=== PATIENT | female | born 1940 | race Caucasian/White ===

== ENCOUNTER 2018-08-13 12:10 | Inpatient (IN) | payer MEDICARE, OTHER ==
[~2018-08-13] VITALS: Ht 154.9 cm; Wt 53.8 kg
[~2018-08-13 12:10] MED LIST: ALEN70TA3 PO; ASPI-482 PO; CRESTOR10 MG PO; HYDR50TA6 PO; METO-269 PO; NIFE60TA12 PO; TELM80TA PO
--- NOTE | 2018-08-13 13:10 | PHYS DOC ---
Adult General Chief Complaint Chief Complaint: HYPERTENSION HPI HPI Patient is a 77 year old female who presents with complaining of high blood pressure. Patient stated for the last 1 week she had elevation of blood pressure associated with headache and dizziness and foggy thinking that gradually getting worse. Patient currently is on 4 blood pressure medication and was treated with prednisone for skin infection. 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 Patient denies focal neuro deficit, chest pain, shortness of breath, fever and chills, dehydration. Patient had blood pressure of 232/108 at arrival to ER. Review of Systems Review of Systems Constitutional: Denies fever or chills [] Eyes: Denies change in visual acuity, redness, or eye pain [] HENT: Denies nasal congestion or sore throat [] Respiratory: Denies cough or shortness of breath [] Cardiovascular: No additional information not addressed in HPI [] GI: Denies abdominal pain, nausea, vomiting, bloody stools or diarrhea [] : Denies dysuria or hematuria [] Musculoskeletal: Denies back pain or joint pain [] Integument: Denies rash or skin lesions [] Neurologic: Reports dizziness and headache, denies focal weakness or sensory changes [] Endocrine: Denies polyuria or polydipsia [] All other systems were reviewed and found to be within normal limits, except as documented in this note. Current Medications Current Medications Allergies Allergies Allergies Coded Allergies Type Severity Reaction Last Updated Verified Sulfa (Sulfonamide Antibiotics) Allergy Intermediate RASH 12/21/14 Yes clopidogrel Allergy Intermediate RASH 12/21/14 Yes Physical Exam Physical Exam Constitutional: Well developed, well nourished, mild distress, non-toxic appearance. [] HENT: Normocephalic, atraumatic. Eyes: PERRLA, EOMI, conjunctiva normal, no discharge. [] Neck: Normal range of motion, no tenderness, supple, no stridor. [] Cardiovascular:Heart rate regular rhythm, no murmur [] Lungs & Thorax: Bilateral breath sounds clear to auscultation [] Abdomen: Bowel sounds normal, soft, no tenderness, no masses, no pulsatile masses. [] Skin: Warm, dry, no erythema, no rash. [] Back: No tenderness, no CVA tenderness. [] Extremities: No tenderness, no cyanosis, no clubbing, ROM intact, no edema. [] Neurologic: Alert and oriented X 3, normal motor function, normal sensory function, no focal deficits noted. [] Psychologic: Affect normal, judgement normal, mood normal. [] Current Patient Data Vital Signs EKG EKG EKG interpreted by me. EKG at 1322 showed sinus bradycardia at rate of 45, abnormal left axis deviation, LVH, no acute ST and T-wave abnormalities. Radiology/Procedures Radiology/Procedures [][place] [address] IMAGING REPORT Signed PATIENT: CELINA ROSADO ACCOUNT: [id number] : 1940 LOCATION: ER AGE: 77 SEX: F EXAM STATUS: REG ER ORD. PHYSICIAN: YESY DELGADO MD REASON: high blood pressure and headache PROCEDURE: PORTABLE CHEST 1V EXAM: CHEST 1 VIEW History: Blood pressure, headache COMPARISON: None available. TECHNIQUE: Single portable radiograph of the chest FINDINGS: Mild cardiomegaly. The lungs are clear bilaterally. The costophrenic sulci are clear and well demarcated. IMPRESSION: No radiographic evidence of an acute cardiopulmonary process. Electronically signed by: Andrés Ugarte MD (08/13/2018 1:29 PM) [facility] DICTATED and SIGNED BY: ANDRÉS UGARTE MD DATE: 08/13/[address] [id number] IMAGING REPORT Signed PATIENT: CELINA ROSADO ACCOUNT: [id number] : 1940 LOCATION: ER AGE: 77 SEX: F EXAM STATUS: REG ER ORD. PHYSICIAN: YESY DELGADO MD REASON: high blood pressure and headache PROCEDURE: CT HEAD WO CONTRAST CT HEAD INDICATION: High blood pressure, headache COMPARISON: None Available. Exposure: One or more of the following individualized dose reduction techniques were utilized for this examination: 1. Automated exposure control 2. Adjustment of the mA and/or kV according to patient size 3. Use of iterative reconstruction technique TECHNIQUE: 5 mm contiguous axial images were obtained from the skull base to the vertex in both bone and soft tissue algorithm. FINDINGS: Mild bilateral periventricular white matter hypodensities likely chronic small vessel ischemic disease. No evidence of acute intracranial hemorrhage. No extra-axial fluid collections. No mass effect or midline shift. Ventricular size is appropriate. Basal cisterns are patent. No fractures identified.Figueroa-white differentiation is preserved.Globes and orbits are within normal limits. Paranasal sinuses and mastoid air cells are clear. IMPRESSION: No acute intracranial findings. Electronically signed by: Andrés Ugarte MD (08/13/2018 2:09 PM) [place] [id number] Course & Med Decision Making Course & Med Decision Making Pertinent Labs and Imaging studies reviewed. (See chart for details) Evaluation of patient in ER showed 77-year-old male patient on 4 antihype rtensive medication presented to ER with elevation of blood pressure. Patient had blood pressure of more than 200 at arrival to ER and treated with hydralazine with improvement of blood pressure. Patient requiring admission for further evaluation and treatment. Discussed with Dr. Orozco who is in agreement with admission. Discussed findings and plan with patient and family, who acknowledge understanding and agreement. Dragon Disclaimer Dragon Disclaimer This electronic medical record was generated, in whole or in part, using a voice recognition dictation system. Departure Departure Impression: Primary Impression: Hypertensive urgency Disposition: ADMITTED INPATIENT (at 1415) Admitting Physician: LYUDMILA (Dr Orozco accepted admission at 1415) Condition: IMPROVED Referrals: JOSE SPARKS MD (PCP) YESY DELGADO MD August 13, 2018 13:10
[2018-08-13 13:22] LABS: BILIRUBIN,URINE NEGATIVE (NEG); CLARITY,URINE CLEAR; COLOR,URINE YELLOW; NITRITE,URINE NEGATIVE (NEG); PROTEIN,URINE NEGATIVE (NEG-TRACE); UROBILINOGEN,URINE 0.2 mg/dL (0.2 mg/dL)
[2018-08-13 13:27] LABS: BACTERIA,URINE 0 /HPF (0-FEW); RBC,URINE 0 /HPF (0-2); WBC,URINE 0 /HPF (0-4)
--- NOTE | 2018-08-13 13:32 | RAD ---
EXAM: CHEST 1 VIEW History: Blood pressure, headache COMPARISON: None available. TECHNIQUE: Single portable radiograph of the chest FINDINGS: Mild cardiomegaly. The lungs are clear bilaterally. The costophrenic sulci are clear and well demarcated. IMPRESSION: No radiographic evidence of an acute cardiopulmonary process. Electronically signed by: Andrés Ugarte MD (08/13/2018 1:29 PM) [place] [id number]
[2018-08-13] MEDS ORDERED: hydrALAZINE 20 MG/ML VIAL. IVP ONE (13:45)
[2018-08-13 13:46] LABS: BASO % 0 % (0-3); EOS # 0.1 x10^3/uL (0.0-0.7); EOS % 1 % (0-3); HEMATOCRIT 41.4 % (36.0-47.0); HEMOGLOBIN 13.6 g/dL (12.0-15.5); LYMPH # 2.2 x10^3/uL (1.0-4.8); LYMPH % 19 % (24-48); MEAN CORPUSCULAR HEMOGLOBIN 31 pg (25-35); MEAN CORPUSCULAR HGB CONC 33 g/dL (31-37); MEAN CORPUSCULAR VOLUME 95 fL (79-100); MONO % 9 % (0-9); NEUT # 8.2 x10^3uL (1.8-7.7); NEUT % 71 % (31-73); PLATELET COUNT 221 x10^3/uL (140-400); RED BLOOD COUNT 4.35 x10^6/uL (3.50-5.40); RED CELL DISTRIBUTION WIDTH 13.4 % (11.5-14.5); WHITE BLOOD COUNT 11.5 x10^3/uL (4.0-11.0)
[2018-08-13 14:00] LABS: PROTHROMBIN TIME PATIENT 13.1 SEC (11.7-14.0)
[2018-08-13 14:03] LABS: CALCIUM 11.5 mg/dL (8.5-10.1); CREATININE 1.2 mg/dL (0.6-1.0); GFR 43.6; POTASSIUM 3.7 mmol/L (3.5-5.1)
[2018-08-13 14:10] LABS: ALBUMIN 3.6 g/dL (3.4-5.0); ALBUMIN/GLOBULIN RATIO 1.1 (1.0-1.7); TOTAL BILIRUBIN 0.4 mg/dL (0.2-1.0); TOTAL PROTEIN 6.9 g/dL (6.4-8.2)
--- NOTE | 2018-08-13 14:12 | RAD ---
CT HEAD INDICATION: High blood pressure, headache COMPARISON: None Available. Exposure: One or more of the following individualized dose reduction techniques were utilized for this examination: 1. Automated exposure control 2. Adjustment of the mA and/or kV according to patient size 3. Use of iterative reconstruction technique TECHNIQUE: 5 mm contiguous axial images were obtained from the skull base to the vertex in both bone and soft tissue algorithm. FINDINGS: Mild bilateral periventricular white matter hypodensities likely chronic small vessel ischemic disease. No evidence of acute intracranial hemorrhage. No extra-axial fluid collections. No mass effect or midline shift. Ventricular size is appropriate. Basal cisterns are patent. No fractures identified.Figueroa-white differentiation is preserved.Globes and orbits are within normal limits. Paranasal sinuses and mastoid air cells are clear. IMPRESSION: No acute intracranial findings. Electronically signed by: Andrés Ugarte MD (08/13/2018 2:09 PM) [place] [id number]
[2018-08-13] MEDS ORDERED: LORazepam 0.5 MG TABLET PO PRN (14:15)
[2018-08-13] MEDS ORDERED: DOCUSATE SODIUM 100 MG CAPSULE. PO PRN (14:15)
[2018-08-13] MEDS ORDERED: guaiFENesin ORAL 200 MG/10 ML LIQUID. PO PRN (14:15)
[2018-08-13] MEDS ORDERED: ALBUTEROL SULFATE 2.5 MG/3 ML NEBU. NEB PRN (14:15)
[2018-08-13] MEDS ORDERED: ONDANSETRON PF 4 MG/2 ML VIAL. IV PRN (14:15)
[2018-08-13] MEDS ORDERED: ACETAMINOPHEN 325 MG TABLET. PO PRN (14:15)
[2018-08-13] MEDS ORDERED: ZOLPIDEM 5 MG TABLET. PO PRN (14:15)
[2018-08-13 14:50] VITALS: BP 129/72
--- NOTE | 2018-08-13 14:53 | EKG ---
[facility] [address] [place] [address] Test Date: 2018-08-13 Test Time: 13:22:04 Pat Name: CELINA ROSADO Department: Room: Gender: F Authorization Nurse: : 1940 Requested By: YESY DELGADO Order Number: [id number] Reading MD: Measurements Intervals [place] Rate: 45 P: 46 [place]: 150 QRS: -35 QRSD: 90 T: 47 QT: 454 QTc: 394 Interpretive Statements SINUS BRADYCARDIA ABNORMAL LEFT AXIS DEVIATION CONSIDER LEFT VENTRICULAR HYPERTROPHY ABNORMAL ECG No previous ECG available for comparison
--- NOTE | 2018-08-13 15:24 | PDOC1 ---
History and Physical Date of Admission Date of Admission 08/13/2018 Identification/Chief Complaint Chief Complaint my blood pressure is high Source Source: Chart review, Patient History of Present Illness History of Present Illness Patient is a 77-year-old female with past medical history of hypertension who was in her usual state of health until approximately one week prior to her admission. The patient was prescribed prednisone in the outpatient setting in [place] she was started on the medication her blood pressure readings have been in the high 190s to 200 systolic range. The patient denies dietary transgressions no changes to her recent medications recently. The patient denies excess salt intake nevertheless her readings have been consistently high. Patient also refers having headache as a consequence of her elevated blood pressure. She denies blurred vision but she does feel lightheaded. She has not loss consciousness no chest pain no palpitations no chest fullness was described. Patient denies slurred speech no palpitations no abdominal pain no urinary symptoms no lower extremity edema no other symptoms were voiced by the patient. She was found to have a blood pressure greater than 220 systolic reason why we were asked to admit the patient for antihypertensive regimen. Patient has not had recent changes to her medications patient's was concerned that she was going to suffer from a stroke I have provided reassurance and explained the plan of care in detail as well. Certainly the patient is at risk given her high readings for a CVA event nevertheless at the time my evaluation the patient is in no apparent distress and not exhibiting any neurological deficits. She does have a history of feeling "lightheaded as a consequence of her high blood pressure All concerns were addressed to the best of my abilities and the plan of care explained in detail ER history: Patient is a 77 year old female who presents with complaining of high blood pressure. Patient stated for the last 1 week she had elevation of blood pressure associated with headache and dizziness and foggy thinking that gradually getting worse. Patient currently is on 4 blood pressure medication and was treated with prednisone for skin infection. 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 Patient denies focal neuro deficit, chest pain, shortness of breath, fever and chills, dehydration. Patient had blood pressure of 232/108 at arrival to ER. Past Medical History Cardiovascular: HTN Past Surgical History Past Surgical History: No pertinent history Family History Family History: No Significant Social History Smoke: No ALCOHOL: none Drugs: None Current Medications Current Medications Current Medications Medications (Trade) Dose Ordered Sig/Ken Start Time Stop Time Status Last Admin Dose Admin Acetaminophen (Tylenol) 650 mg PRN Q4HRS PRN 08/13/18 14:15 Albuterol Sulfate (Ventolin Neb Soln) 2.5 mg PRN Q4HRS PRN 08/13/18 14:15 Aspirin (Ecotrin) 81 mg DAILY 08/14/18 09:00 Atorvastatin Calcium (Lipitor) 40 mg QHS 08/13/18 21:00 Docusate Sodium (Colace) 100 mg PRN BID PRN 08/13/18 14:15 Guaifenesin (Robitussin) 200 mg PRN Q4HRS PRN 08/13/18 14:15 Hydralazine HCl (Apresoline Inj) 10 mg 1X ONCE 08/13/18 13:45 08/13/18 13:46 DC 08/13/18 14:30 10 MG Lorazepam (Ativan) 0.5 mg PRN Q4HRS PRN 08/13/18 14:15 Losartan Potassium (Cozaar) 100 mg DAILY 08/14/18 09:00 Metoprolol Succinate (Toprol Xl) 50 mg DAILY 08/14/18 09:00 Nifedipine (Procardia Xl) 60 mg DAILY 08/14/18 09:00 Non-Formulary Medication (Alendronate Sodium (Fosamax)) 1 tab WEEKLY 08/20/18 09:00 UNV Ondansetron HCl (Zofran) 4 mg PRN Q4HRS PRN 08/13/18 14:15 Zolpidem Tartrate (Ambien) 5 mg PRN QHS PRN 08/13/18 14:15 Allergies Allergies Allergies Coded Allergies Type Severity Reaction Last Updated Verified Sulfa (Sulfonamide Antibiotics) Allergy Intermediate RASH 12/21/14 Yes clopidogrel Allergy Intermediate RASH 12/21/14 Yes ROS Review of System CONSTITUTIONAL: No fever or chills EYES: No recent changes SKIN: No rash or itching CARDIOVASCULAR: No chest pain, syncope, palpitations, or edema RESPIRATORY: No SOB or cough GASTROINTESTINAL: No nausea, vomiting or abdominal pain NEUROLOGICAL +headaches no deficits reported. ENDOCRINE: No cold or heat intolerance GENITOURINARY: No urgency or frequency of urination MUSCULOSKELETAL: No back pain or joint pain LYMPHATICS: No enlarged lymph nodes PSYCHIATRIC: No anxiety or depression Physical Exam Physical Exam GEN.: No apparent distress. Alert and oriented. HEENT: Head is normocephalic, atraumatic NECK: Supple. LUNGS: Clear to auscultation. HEART: RRR, S1, S2 present. Peripheral pulses intact ABDOMEN: Soft, nontender. Positive bowel sounds. EXTREMITIES: Without any cyanosis. NEUROLOGIC: Normal speech, normal tone PSYCHIATRIC: Normal affect, normal mood. SKIN: No ulcerations Vitals Vitals Vital Signs Date Time Temp Pulse Resp B/P (MAP) Pulse Ox O2 Delivery O2 Flow Rate FiO2 08/13/18 14:30 51 218/89 08/13/18 14:00 100 08/13/18 13:12 98.0 16 Room Air 98.0 Labs Labs Laboratory Tests Test 08/13/18 13:10 08/13/18 13:30 Urine Collection Type Unknown Urine Color Yellow Urine Clarity Clear Urine pH 7.0 Urine Specific [place] <=1.005 Urine Protein Negative mg/dL (NEG-TRACE) Urine Glucose (UA) Negative mg/dL (NEG) Urine Ketones (Stick) Negative mg/dL (NEG) Urine Blood Negative (NEG) Urine Nitrite Negative (NEG) Urine Bilirubin Negative (NEG) Urine Urobilinogen Dipstick 0.2 mg/dL (0.2 mg/dL) Urine Leukocyte Esterase Negative (NEG) Urine RBC 0 /HPF (0-2) Urine WBC 0 /HPF (0-4) Urine Bacteria 0 /HPF (0-FEW) White Blood Count 11.5 x10^3/uL (4.0-11.0) Red Blood Count 4.35 x10^6/uL (3.50-5.40) Hemoglobin 13.6 g/dL (12.0-15.5) Hematocrit 41.4 % (36.0-47.0) Mean Corpuscular Volume 95 fL (79-100) Mean Corpuscular Hemoglobin 31 pg (25-35) Mean Corpuscular Hemoglobin Concent 33 g/dL (31-37) Red Cell Distribution Width 13.4 % (11.5-14.5) Platelet Count 221 x10^3/uL (140-400) Neutrophils (%) (Auto) 71 % (31-73) Lymphocytes (%) (Auto) 19 % (24-48) Monocytes (%) (Auto) 9 % (0-9) Eosinophils (%) (Auto) 1 % (0-3) Basophils (%) (Auto) 0 % (0-3) Neutrophils # (Auto) 8.2 x10^3uL (1.8-7.7) Lymphocytes # (Auto) 2.2 x10^3/uL (1.0-4.8) Monocytes # (Auto) 1.0 x10^3/uL (0.0-1.1) Eosinophils # (Auto) 0.1 x10^3/uL (0.0-0.7) Basophils # (Auto) 0.0 x10^3/uL (0.0-0.2) Prothrombin Time 13.1 SEC (11.7-14.0) Prothromb Time International Ratio 1.0 (0.8-1.1) Sodium Level 147 mmol/L (136-145) Potassium Level 3.7 mmol/L (3.5-5.1) Chloride Level 107 mmol/L (98-107) Carbon Dioxide Level 32 mmol/L (21-32) Anion Gap 8 (6-14) Blood Urea Nitrogen 30 mg/dL (7-20) Creatinine 1.2 mg/dL (0.6-1.0) Estimated GFR (Cockcroft-Gault) 43.6 BUN/Creatinine Ratio 25 (6-20) Glucose Level 90 mg/dL (70-99) Calcium Level 11.5 mg/dL (8.5-10.1) Total Bilirubin 0.4 mg/dL (0.2-1.0) Aspartate Amino Transf (AST/SGOT) 16 U/L (15-37) Alanine Aminotransferase (ALT/SGPT) 22 U/L (14-59) Alkaline Phosphatase 54 U/L (46-116) Creatine Kinase 20 U/L (26-192) Troponin I Quantitative < 0.017 ng/mL (0.000-0.055) VL-Jyx-D-Type Natriuretic Peptide 1828 pg/mL (0-449) Total Protein 6.9 g/dL (6.4-8.2) Albumin 3.6 g/dL (3.4-5.0) Albumin/Globulin Ratio 1.1 (1.0-1.7) Lipase 181 U/L (73-393) Laboratory Tests Test 08/13/18 13:10 08/13/18 13:30 Urine Collection Type Unknown Urine Color Yellow Urine Clarity Clear Urine pH 7.0 Urine Specific [place] <=1.005 Urine Protein Negative mg/dL (NEG-TRACE) Urine Glucose (UA) Negative mg/dL (NEG) Urine Ketones (Stick) Negative mg/dL (NEG) Urine Blood Negative (NEG) Urine Nitrite Negative (NEG) Urine Bilirubin Negative (NEG) Urine Urobilinogen Dipstick 0.2 mg/dL (0.2 mg/dL) Urine Leukocyte Esterase Negative (NEG) Urine RBC 0 /HPF (0-2) Urine WBC 0 /HPF (0-4) Urine Bacteria 0 /HPF (0-FEW) White Blood Count 11.5 x10^3/uL (4.0-11.0) Red Blood Count 4.35 x10^6/uL (3.50-5.40) Hemoglobin 13.6 g/dL (12.0-15.5) Hematocrit 41.4 % (36.0-47.0) Mean Corpuscular Volume 95 fL (79-100) Mean Corpuscular Hemoglobin 31 pg (25-35) Mean Corpuscular Hemoglobin Concent 33 g/dL (31-37) Red Cell Distribution Width 13.4 % (11.5-14.5) Platelet Count 221 x10^3/uL (140-400) Neutrophils (%) (Auto) 71 % (31-73) Lymphocytes (%) (Auto) 19 % (24-48) Monocytes (%) (Auto) 9 % (0-9) Eosinophils (%) (Auto) 1 % (0-3) Basophils (%) (Auto) 0 % (0-3) Neutrophils # (Auto) 8.2 x10^3uL (1.8-7.7) Lymphocytes # (Auto) 2.2 x10^3/uL (1.0-4.8) Monocytes # (Auto) 1.0 x10^3/uL (0.0-1.1) Eosinophils # (Auto) 0.1 x10^3/uL (0.0-0.7) Basophils # (Auto) 0.0 x10^3/uL (0.0-0.2) Prothrombin Time 13.1 SEC (11.7-14.0) Prothromb Time International Ratio 1.0 (0.8-1.1) Sodium Level 147 mmol/L (136-145) Potassium Level 3.7 mmol/L (3.5-5.1) Chloride Level 107 mmol/L (98-107) Carbon Dioxide Level 32 mmol/L (21-32) Anion Gap 8 (6-14) Blood Urea Nitrogen 30 mg/dL (7-20) Creatinine 1.2 mg/dL (0.6-1.0) Estimated GFR (Cockcroft-Gault) 43.6 BUN/Creatinine Ratio 25 (6-20) Glucose Level 90 mg/dL (70-99) Calcium Level 11.5 mg/dL (8.5-10.1) Total Bilirubin 0.4 mg/dL (0.2-1.0) Aspartate Amino Transf (AST/SGOT) 16 U/L (15-37) Alanine Aminotransferase (ALT/SGPT) 22 U/L (14-59) Alkaline Phosphatase 54 U/L (46-116) Creatine Kinase 20 U/L (26-192) Troponin I Quantitative < 0.017 ng/mL (0.000-0.055) IQ-Tnr-U-Type Natriuretic Peptide 1828 pg/mL (0-449) Total Protein 6.9 g/dL (6.4-8.2) Albumin 3.6 g/dL (3.4-5.0) Albumin/Globulin Ratio 1.1 (1.0-1.7) Lipase 181 U/L (73-393) VTE Prophylaxis Ordered VTE Prophylaxis Devices: Yes VTE Pharmacological Prophylaxi: No Assessment/Plan Assessment/Plan Hypertensive urgency Moderate dehydration history of CAD currently asymptomatic Leukocytosis which probably is hemoconcentration hypernatremia hypercalcemia most likely secondary to hemoconcentration Plan: will start cardene drip resume home meds recheck labs in am monitor neurological status DVT prohylaxis: scd and teds will resume home medications once reviewed. further recommendations based on clinical course. KIRK MACDONALD MD August 13, 2018 15:24
[2018-08-13] MEDS ORDERED: niCARdipine 50 MG in IV NORMAL SALINE 250ML 250 ML IV PRN (15:30)
[2018-08-13] MEDS: PANTOPRAZOLE 40 MG TABLET.DR. PO SCH (16:20)
[2018-08-13] MEDS ORDERED: hydrALAZINE 20 MG/ML VIAL. IVP PRN (16:30)
[2018-08-13] MEDS ORDERED: FURO-69 PO (16:41)
[2018-08-13] MEDS ORDERED: DOCU-109 PO (16:41)
[2018-08-13] MEDS ORDERED: CHOL100013 PO (16:41)
[2018-08-13] MEDS ORDERED: LEVO75TA PO (16:41)
[2018-08-13] MEDS ORDERED: OMEP20TA63 PO (16:41)
[2018-08-13] MEDS ORDERED: CALC500T54 PO (16:41)
[2018-08-13] MEDS ORDERED: POTA10TA12 PO (16:41)
[2018-08-13] MEDS ORDERED: AMLO5TAB4 PO (16:41)
[2018-08-13] MEDS ORDERED: LUTE1CAP PO (16:41)
[2018-08-13] MEDS ORDERED: MAGN400C PO (16:41)
[2018-08-13] MEDS ORDERED: NON FORMULARY ITEM (Omeprazole Magnesium (Prilosec Otc) 1 TAB) PO SCH (17:00)
[2018-08-13 19:10] VITALS: BP 117/65
[2018-08-13] MEDS: ATORVASTATIN CALCIUM 40 MG TABLET. PO SCH (21:02)
[2018-08-13] MEDS: amLODIPine BESYLATE 10 MG TABLET PO SCH (21:02)
[2018-08-13 23:33] VITALS: BP 140/67
[2018-08-14 05:08] LABS: BASO % 0 % (0-3); EOS % 0 % (0-3); HEMATOCRIT 42.8 % (36.0-47.0); HEMOGLOBIN 14.1 g/dL (12.0-15.5); LYMPH # 1.4 x10^3/uL (1.0-4.8); LYMPH % 12 % (24-48); MEAN CORPUSCULAR HEMOGLOBIN 31 pg (25-35); MEAN CORPUSCULAR HGB CONC 33 g/dL (31-37); MEAN CORPUSCULAR VOLUME 95 fL (79-100); MONO # 0.7 x10^3/uL (0.0-1.1); MONO % 6 % (0-9); NEUT # 9.2 x10^3uL (1.8-7.7); NEUT % 81 % (31-73); PLATELET COUNT 217 x10^3/uL (140-400); RED CELL DISTRIBUTION WIDTH 13.3 % (11.5-14.5); WHITE BLOOD COUNT 11.3 x10^3/uL (4.0-11.0)
[2018-08-14 05:32] LABS: CALCIUM 11.1 mg/dL (8.5-10.1); CREATININE 1.2 mg/dL (0.6-1.0); GFR 43.6; POTASSIUM 4.3 mmol/L (3.5-5.1)
[2018-08-14] MEDS: LEVOTHYROXINE 75 MCG TABLET PO SCH (05:57)
[2018-08-14 07:00] VITALS: BP 160/81
[2018-08-14] MEDS: PANTOPRAZOLE 40 MG TABLET.DR. PO SCH (08:08)
[2018-08-14] MEDS: LOSARTAN POTASSIUM 50 MG TABLET. PO SCH (08:08)
[2018-08-14] MEDS: FUROSEMIDE 20 MG TABLET PO SCH (08:08)
[2018-08-14] MEDS: POTASSIUM CHLORIDE 10 MEQ TABLET.ER. PO SCH (08:08)
[2018-08-14] MEDS: ASPIRIN ENTERIC COATED 81 MG TABLET.DR. PO SCH (08:08)
[2018-08-14] MEDS: METOPROLOL SUCC 24HR ER 50 MG TAB.ER.24H. PO SCH (08:09)
--- NOTE | 2018-08-14 09:42 | RAD ---
Chest, PA and Lateral: Technique: PA and lateral views of the chest were obtained. History: Cough. Comparison: 08/13/2018. Findings: The heart and pulmonary vasculature appear within normal limits. The lungs are clear. The pleural margins are clear. Impression: No acute chest process is seen. Electronically signed by: Andrés Ugarte MD (08/14/2018 9:40 AM) [facility]
[2018-08-14 11:04] VITALS: BP 185/85
[2018-08-14] MEDS ORDERED: IV NORMAL SALINE 1000ML BAG 1,000 ML IV ONE (11:15)
[2018-08-14] MEDS ORDERED: FUROSEMIDE 40 MG/4 ML VIAL. IVP ONE (11:15)
--- NOTE | 2018-08-14 11:32 | PDOC ---
PROGRESS NOTES Chief Complaint Chief Complaint Hypertensive urgency Moderate dehydration history of CAD currently asymptomatic Leukocytosis - likely hemoconcentration Hypernatremia Hypercalcemia still present History of Present Illness History of Present Illness Patient is a 77-year-old female with past medical history of hypertension, osteoporosis (on prolia) who was in her usual state of health until approximately one week prior to her admission. The patient was prescribed prednisone in the outpatient setting and noted 190s to 200 systolic range. The patient denies dietary transgressions no changes to her recent medications recently. The patient denies excess salt intake nevertheless her readings have been consistently high. Patient also refers having headache as a consequence of her elevated blood pressure. She denies blurred vision but she does feel lightheaded and "foggy". She has not loss consciousness no chest pain no palpitations no chest fullness was described. Patient denies slurred speech no palpitations no abdominal pain no urinary symptoms no lower extremity edema no other symptoms were voiced by the patient. She was found to have a blood pressure greater than 220 systolic reason why we were asked to admit the patient for antihypertensive regimen. Calcium level notably 11.5 with Albumin of 3.7 Patient has not had recent changes to her medications patient's was concerned that she was going to suffer from a stroke I have provided reassurance and explained the plan of care in detail as well. Certainly the patient is at risk given her high readings for a CVA event nevertheless at the time my evaluation the patient is in no apparent distress and not exhibiting any neuro logical deficits. She does have a history of feeling "lightheaded as a consequence of her high blood pressure Overnight BP controlled with home meds and PRN hydralazine. Calcium still elevated this morning. Plan: IVF and lasix to lower her calcium level. Check PTH, phos, vitamin D levels. Would hold off on prolia for now. Vitals Vitals Vital Signs Date Time Temp Pulse Resp B/P (MAP) Pulse Ox O2 Delivery O2 Flow Rate FiO2 08/14/18 11:04 98.0 55 18 185/85 (118) 97 Room Air 98.0 Physical Exam General: Alert, Cooperative Heart: Regular rate, Normal S1, Normal S2 Lungs: Clear, Wheezing Abdomen: Normal bowel sounds, Soft Extremities: No clubbing, No cyanosis Skin: No rashes, No breakdown Labs LABS Laboratory Tests Test 08/13/18 13:10 08/13/18 13:30 08/14/18 04:50 Urine Collection Type Unknown Urine Color Yellow Urine Clarity Clear Urine pH 7.0 Urine Specific [place] <=1.005 Urine Protein Negative mg/dL (NEG-TRACE) Urine Glucose (UA) Negative mg/dL (NEG) Urine Ketones (Stick) Negative mg/dL (NEG) Urine Blood Negative (NEG) Urine Nitrite Negative (NEG) Urine Bilirubin Negative (NEG) Urine Urobilinogen Dipstick 0.2 mg/dL (0.2 mg/dL) Urine Leukocyte Esterase Negative (NEG) Urine RBC 0 /HPF (0-2) Urine WBC 0 /HPF (0-4) Urine Bacteria 0 /HPF (0-FEW) White Blood Count 11.5 x10^3/uL (4.0-11.0) 11.3 x10^3/uL (4.0-11.0) Red Blood Count 4.35 x10^6/uL (3.50-5.40) 4.50 x10^6/uL (3.50-5.40) Hemoglobin 13.6 g/dL (12.0-15.5) 14.1 g/dL (12.0-15.5) Hematocrit 41.4 % (36.0-47.0) 42.8 % (36.0-47.0) Mean Corpuscular Volume 95 fL (79-100) 95 fL (79-100) Mean Corpuscular Hemoglobin 31 pg (25-35) 31 pg (25-35) Mean Corpuscular Hemoglobin Concent 33 g/dL (31-37) 33 g/dL (31-37) Red Cell Distribution Width 13.4 % (11.5-14.5) 13.3 % (11.5-14.5) Platelet Count 221 x10^3/uL (140-400) 217 x10^3/uL (140-400) Neutrophils (%) (Auto) 71 % (31-73) 81 % (31-73) Lymphocytes (%) (Auto) 19 % (24-48) 12 % (24-48) Monocytes (%) (Auto) 9 % (0-9) 6 % (0-9) Eosinophils (%) (Auto) 1 % (0-3) 0 % (0-3) Basophils (%) (Auto) 0 % (0-3) 0 % (0-3) Neutrophils # (Auto) 8.2 x10^3uL (1.8-7.7) 9.2 x10^3uL (1.8-7.7) Lymphocytes # (Auto) 2.2 x10^3/uL (1.0-4.8) 1.4 x10^3/uL (1.0-4.8) Monocytes # (Auto) 1.0 x10^3/uL (0.0-1.1) 0.7 x10^3/uL (0.0-1.1) Eosinophils # (Auto) 0.1 x10^3/uL (0.0-0.7) 0.0 x10^3/uL (0.0-0.7) Basophils # (Auto) 0.0 x10^3/uL (0.0-0.2) 0.0 x10^3/uL (0.0-0.2) Prothrombin Time 13.1 SEC (11.7-14.0) Prothromb Time International Ratio 1.0 (0.8-1.1) Sodium Level 147 mmol/L (136-145) 145 mmol/L (136-145) Potassium Level 3.7 mmol/L (3.5-5.1) 4.3 mmol/L (3.5-5.1) Chloride Level 107 mmol/L (98-107) 108 mmol/L (98-107) Carbon Dioxide Level 32 mmol/L (21-32) 29 mmol/L (21-32) Anion Gap 8 (6-14) 8 (6-14) Blood Urea Nitrogen 30 mg/dL (7-20) 37 mg/dL (7-20) Creatinine 1.2 mg/dL (0.6-1.0) 1.2 mg/dL (0.6-1.0) Estimated GFR (Cockcroft-Gault) 43.6 43.6 BUN/Creatinine Ratio 25 (6-20) Glucose Level 90 mg/dL (70-99) 99 mg/dL (70-99) Calcium Level 11.5 mg/dL (8.5-10.1) 11.1 mg/dL (8.5-10.1) Total Bilirubin 0.4 mg/dL (0.2-1.0) Aspartate Amino Transf (AST/SGOT) 16 U/L (15-37) Alanine Aminotransferase (ALT/SGPT) 22 U/L (14-59) Alkaline Phosphatase 54 U/L (46-116) Creatine Kinase 20 U/L (26-192) Troponin I Quantitative < 0.017 ng/mL (0.000-0.055) VN-Bce-D-Type Natriuretic Peptide 1828 pg/mL (0-449) Total Protein 6.9 g/dL (6.4-8.2) Albumin 3.6 g/dL (3.4-5.0) Albumin/Globulin Ratio 1.1 (1.0-1.7) Lipase 181 U/L (73-393) Comment Review of Relevant I have reviewed the following items marjorie (where applicable) has been applied. Labs Laboratory Tests Test 08/13/18 13:10 08/13/18 13:30 08/14/18 04:50 Urine Collection Type Unknown Urine Color Yellow Urine Clarity Clear Urine pH 7.0 Urine Specific [place] <=1.005 Urine Protein Negative mg/dL (NEG-TRACE) Urine Glucose (UA) Negative mg/dL (NEG) Urine Ketones (Stick) Negative mg/dL (NEG) Urine Blood Negative (NEG) Urine Nitrite Negative (NEG) Urine Bilirubin Negative (NEG) Urine Urobilinogen Dipstick 0.2 mg/dL (0.2 mg/dL) Urine Leukocyte Esterase Negative (NEG) Urine RBC 0 /HPF (0-2) Urine WBC 0 /HPF (0-4) Urine Bacteria 0 /HPF (0-FEW) White Blood Count 11.5 x10^3/uL (4.0-11.0) 11.3 x10^3/uL (4.0-11.0) Red Blood Count 4.35 x10^6/uL (3.50-5.40) 4.50 x10^6/uL (3.50-5.40) Hemoglobin 13.6 g/dL (12.0-15.5) 14.1 g/dL (12.0-15.5) Hematocrit 41.4 % (36.0-47.0) 42.8 % (36.0-47.0) Mean Corpuscular Volume 95 fL (79-100) 95 fL (79-100) Mean Corpuscular Hemoglobin 31 pg (25-35) 31 pg (25-35) Mean Corpuscular Hemoglobin Concent 33 g/dL (31-37) 33 g/dL (31-37) Red Cell Distribution Width 13.4 % (11.5-14.5) 13.3 % (11.5-14.5) Platelet Count 221 x10^3/uL (140-400) 217 x10^3/uL (140-400) Neutrophils (%) (Auto) 71 % (31-73) 81 % (31-73) Lymphocytes (%) (Auto) 19 % (24-48) 12 % (24-48) Monocytes (%) (Auto) 9 % (0-9) 6 % (0-9) Eosinophils (%) (Auto) 1 % (0-3) 0 % (0-3) Basophils (%) (Auto) 0 % (0-3) 0 % (0-3) Neutrophils # (Auto) 8.2 x10^3uL (1.8-7.7) 9.2 x10^3uL (1.8-7.7) Lymphocytes # (Auto) 2.2 x10^3/uL (1.0-4.8) 1.4 x10^3/uL (1.0-4.8) Monocytes # (Auto) 1.0 x10^3/uL (0.0-1.1) 0.7 x10^3/uL (0.0-1.1) Eosinophils # (Auto) 0.1 x10^3/uL (0.0-0.7) 0.0 x10^3/uL (0.0-0.7) Basophils # (Auto) 0.0 x10^3/uL (0.0-0.2) 0.0 x10^3/uL (0.0-0.2) Prothrombin Time 13.1 SEC (11.7-14.0) Prothromb Time International Ratio 1.0 (0.8-1.1) Sodium Level 147 mmol/L (136-145) 145 mmol/L (136-145) Potassium Level 3.7 mmol/L (3.5-5.1) 4.3 mmol/L (3.5-5.1) Chloride Level 107 mmol/L (98-107) 108 mmol/L (98-107) Carbon Dioxide Level 32 mmol/L (21-32) 29 mmol/L (21-32) Anion Gap 8 (6-14) 8 (6-14) Blood Urea Nitrogen 30 mg/dL (7-20) 37 mg/dL (7-20) Creatinine 1.2 mg/dL (0.6-1.0) 1.2 mg/dL (0.6-1.0) Estimated GFR (Cockcroft-Gault) 43.6 43.6 BUN/Creatinine Ratio 25 (6-20) Glucose Level 90 mg/dL (70-99) 99 mg/dL (70-99) Calcium Level 11.5 mg/dL (8.5-10.1) 11.1 mg/dL (8.5-10.1) Total Bilirubin 0.4 mg/dL (0.2-1.0) Aspartate Amino Transf (AST/SGOT) 16 U/L (15-37) Alanine Aminotransferase (ALT/SGPT) 22 U/L (14-59) Alkaline Phosphatase 54 U/L (46-116) Creatine Kinase 20 U/L (26-192) Troponin I Quantitative < 0.017 ng/mL (0.000-0.055) SF-Lhz-Z-Type Natriuretic Peptide 1828 pg/mL (0-449) Total Protein 6.9 g/dL (6.4-8.2) Albumin 3.6 g/dL (3.4-5.0) Albumin/Globulin Ratio 1.1 (1.0-1.7) Lipase 181 U/L (73-393) Laboratory Tests Test 08/13/18 13:10 08/13/18 13:30 08/14/18 04:50 Urine Collection Type Unknown Urine Color Yellow Urine Clarity Clear Urine pH 7.0 Urine Specific [place] <=1.005 Urine Protein Negative mg/dL (NEG-TRACE) Urine Glucose (UA) Negative mg/dL (NEG) Urine Ketones (Stick) Negative mg/dL (NEG) Urine Blood Negative (NEG) Urine Nitrite Negative (NEG) Urine Bilirubin Negative (NEG) Urine Urobilinogen Dipstick 0.2 mg/dL (0.2 mg/dL) Urine Leukocyte Esterase Negative (NEG) Urine RBC 0 /HPF (0-2) Urine WBC 0 /HPF (0-4) Urine Bacteria 0 /HPF (0-FEW) White Blood Count 11.5 x10^3/uL (4.0-11.0) 11.3 x10^3/uL (4.0-11.0) Red Blood Count 4.35 x10^6/uL (3.50-5.40) 4.50 x10^6/uL (3.50-5.40) Hemoglobin 13.6 g/dL (12.0-15.5) 14.1 g/dL (12.0-15.5) Hematocrit 41.4 % (36.0-47.0) 42.8 % (36.0-47.0) Mean Corpuscular Volume 95 fL (79-100) 95 fL (79-100) Mean Corpuscular Hemoglobin 31 pg (25-35) 31 pg (25-35) Mean Corpuscular Hemoglobin Concent 33 g/dL (31-37) 33 g/dL (31-37) Red Cell Distribution Width 13.4 % (11.5-14.5) 13.3 % (11.5-14.5) Platelet Count 221 x10^3/uL (140-400) 217 x10^3/uL (140-400) Neutrophils (%) (Auto) 71 % (31-73) 81 % (31-73) Lymphocytes (%) (Auto) 19 % (24-48) 12 % (24-48) Monocytes (%) (Auto) 9 % (0-9) 6 % (0-9) Eosinophils (%) (Auto) 1 % (0-3) 0 % (0-3) Basophils (%) (Auto) 0 % (0-3) 0 % (0-3) Neutrophils # (Auto) 8.2 x10^3uL (1.8-7.7) 9.2 x10^3uL (1.8-7.7) Lymphocytes # (Auto) 2.2 x10^3/uL (1.0-4.8) 1.4 x10^3/uL (1.0-4.8) Monocytes # (Auto) 1.0 x10^3/uL (0.0-1.1) 0.7 x10^3/uL (0.0-1.1) Eosinophils # (Auto) 0.1 x10^3/uL (0.0-0.7) 0.0 x10^3/uL (0.0-0.7) Basophils # (Auto) 0.0 x10^3/uL (0.0-0.2) 0.0 x10^3/uL (0.0-0.2) Prothrombin Time 13.1 SEC (11.7-14.0) Prothromb Time International Ratio 1.0 (0.8-1.1) Sodium Level 147 mmol/L (136-145) 145 mmol/L (136-145) Potassium Level 3.7 mmol/L (3.5-5.1) 4.3 mmol/L (3.5-5.1) Chloride Level 107 mmol/L (98-107) 108 mmol/L (98-107) Carbon Dioxide Level 32 mmol/L (21-32) 29 mmol/L (21-32) Anion Gap 8 (6-14) 8 (6-14) Blood Urea Nitrogen 30 mg/dL (7-20) 37 mg/dL (7-20) Creatinine 1.2 mg/dL (0.6-1.0) 1.2 mg/dL (0.6-1.0) Estimated GFR (Cockcroft-Gault) 43.6 43.6 BUN/Creatinine Ratio 25 (6-20) Glucose Level 90 mg/dL (70-99) 99 mg/dL (70-99) Calcium Level 11.5 mg/dL (8.5-10.1) 11.1 mg/dL (8.5-10.1) Total Bilirubin 0.4 mg/dL (0.2-1.0) Aspartate Amino Transf (AST/SGOT) 16 U/L (15-37) Alanine Aminotransferase (ALT/SGPT) 22 U/L (14-59) Alkaline Phosphatase 54 U/L (46-116) Creatine Kinase 20 U/L (26-192) Troponin I Quantitative < 0.017 ng/mL (0.000-0.055) PL-Zmv-O-Type Natriuretic Peptide 1828 pg/mL (0-449) Total Protein 6.9 g/dL (6.4-8.2) Albumin 3.6 g/dL (3.4-5.0) Albumin/Globulin Ratio 1.1 (1.0-1.7) Lipase 181 U/L (73-393) Medications Current Medications Hydralazine HCl (Apresoline Inj) 10 mg 1X ONCE IVP Last administered on 08/13/18at 14:30; Start 08/13/18 at 13:45; Stop 08/13/18 at 13:46; Status DC Ondansetron HCl (Zofran) 4 mg PRN Q4HRS PRN IV NAUSEA/VOMITING; Start 08/13/18 at 14:15 Zolpidem Tartrate (Ambien) 5 mg PRN QHS PRN PO INSOMNIA; Start 08/13/18 at 14:15 Acetaminophen (Tylenol) 650 mg PRN Q4HRS PRN PO TEMP OVER 100.4F OR MILD PAIN; Start 08/13/18 at 14:15 Docusate Sodium (Colace) 100 mg PRN BID PRN PO CONSTIPATION; Start 08/13/18 at 14:15 Albuterol Sulfate (Ventolin Neb Soln) 2.5 mg PRN Q4HRS PRN NEB SHORTNESS OF BREATH; Start 08/13/18 at 14:15 Guaifenesin (Robitussin) 200 mg PRN Q4HRS PRN PO COUGH; Start 08/13/18 at 14:15 Lorazepam (Ativan) 0.5 mg PRN Q4HRS PRN PO ANXIETY / AGITATION; Start 08/13/18 at 14:15 Aspirin (Ecotrin) 81 mg DAILY PO Last administered on 08/14/18at 08:08; Start 08/14/18 at 09:00 Non-Formulary Medication (Alendronate Sodium (Fosamax)) 1 tab WEEKLY PO ; Start 08/20/18 at 09:00; Status UNV Metoprolol Succinate (Toprol Xl) 50 mg DAILY PO Last administered on 08/14/18at 08:09; Start 08/14/18 at 09:00 Nifedipine (Procardia Xl) 60 mg DAILY PO ; Start 08/14/18 at 09:00; Stop 08/14/18 at 09:00; Status DC Atorvastatin Calcium (Lipitor) 40 mg QHS PO Last administered on 08/13/18at 21:02; Start 08/13/18 at 21:00 Losartan Potassium (Cozaar) 100 mg DAILY PO Last administered on 08/14/18at 08:08; Start 08/14/18 at 09:00 Nicardipine HCl 50 mg/Sodium Chloride 250 ml CONT PRN IV SEE I/O RECORD; Start 08/13/18 at 15:15; Stop 08/14/18 at 15:14; Status UNV Nicardipine HCl 50 mg/Sodium Chloride 250 ml @ 25 mls/hr CONT PRN IV SEE I/O RECORD; Start 08/13/18 at 15:30 Pantoprazole Sodium (Protonix) 40 mg DAILYAC PO Last administered on 08/14/18at 08:08; Start 08/13/18 at 15:45 Hydralazine HCl (Apresoline Inj) 10 mg PRN Q4HRS PRN IVP ELEVATED BP, SEE COMMENTS; Start 08/13/18 at 16:30 Amlodipine Besylate (Norvasc) 10 mg HS PO Last administered on 08/13/18at 21:02; Start 08/13/18 at 21:00 Furosemide (Lasix) 20 mg DAILY PO Last administered on 08/14/18at 08:08; Start 08/14/18 at 09:00 Levothyroxine Sodium (Synthroid) 75 mcg DAILY06 PO Last administered on 08/14/18at 05:57; Start 08/14/18 at 06:00 Potassium Chloride (Klor-Con) 10 meq DAILY PO Last administered on 08/14/18at 08:08; Start 08/14/18 at 09:00 Non-Formulary Medication (Omeprazole Magnesium (Prilosec Otc)) 1 tab DAILYBFRSUP PO ; Start 08/13/18 at 17:00; Status UNV Active Scripts Active Reported Colace (Docusate Sodium) 100 Mg Capsule 1 Cap PO HS Lutein-Zeaxanthin 25-5 Mg Sfgl (Lutein/Zeaxanthin) 1 Each Capsule 1 Each PO DAILY Magnesium (Magnesium Oxide) 400 Mg Capsule 250 Mg PO DAILY Calcium (Calcium Carbonate) 500 Mg Tab.chew 1,200 Mg PO DAILY Vitamin D (Cholecalciferol (Vitamin D3)) 1,000 Unit Capsule 1,000 Unit PO DAILY Norvasc (Amlodipine Besylate) 5 Mg Tablet 1 Tab PO DAILY Prilosec Otc (Omeprazole Magnesium) 20 Mg Tablet.dr 1 Tab PO DAILYBFRSUP Potassium Chloride 10 Meq Tab.sr.24h 10 Meq PO DAILY Lasix (Furosemide) 20 Mg Tablet 1 Tab PO DAILY Synthroid (Levothyroxine Sodium) 75 Mcg Tablet 1 Tab PO DAILY Crestor (Rosuvastatin Calcium) 10 Mg Tablet 1 Tab PO HS Toprol Xl (Metoprolol Succinate) 50 Mg Tab.er.24h 1 Tab PO DAILY Micardis (Telmisartan) 80 Mg Tablet 1 Tab PO DAILY Aspir 81 (Aspirin) 81 Mg Tablet.dr 1 Tab PO HS Vitals/I & O Vital Sign - Last 24 Hours 08/13/18 08/13/18 08/13/18 08/13/18 13:12 13:30 14:00 14:30 Temp 98.0 98.0 Pulse 57 52 49 51 Resp 16 B/P (MAP) 232/94 (140) 218/89 Pulse Ox 97 100 100 O2 Delivery Room Air 08/13/18 08/13/18 08/13/18 08/13/18 14:50 16:30 19:10 20:24 Temp 97.9 97.9 97.9 97.9 Pulse 53 56 Resp 18 17 B/P (MAP) 129/72 (91) 117/65 (82) Pulse Ox 98 97 O2 Delivery Room Air Room Air Room Air Room Air 08/13/18 08/13/18 08/14/18 08/14/18 21:02 23:33 03:24 07:00 Temp 97.8 97.7 97.8 97.7 Pulse 56 49 48 55 Resp 18 18 B/P (MAP) 117/65 140/67 (91) 160/81 (107) Pulse Ox 96 97 O2 Delivery Room Air Room Air 08/14/18 08/14/18 08/14/18 08/14/18 08:00 08:08 08:09 11:04 Temp 98.0 98.0 Pulse 55 55 55 Resp 18 B/P (MAP) 160/81 160/81 185/85 (118) Pulse Ox 97 O2 Delivery Room Air Room Air Intake and Output 08/13/18 08/13/18 08/14/18 15:00 23:00 07:00 Intake Total 800 ml Balance 800 ml LUCHO TOLLIVER MD Aug 14, 2018 11:32
[2018-08-14 15:00] VITALS: BP 91/51
--- NOTE | 2018-08-14 15:07 | PDOC2 ---
CONSULT Date of Consult Date of Consult DATE: 08/14/18 TIME: 15:01 Reason for Consult Reason for Consult: Accelerated hypertension. Referring Physician Referring Physician: Dr. Orozco Identification/Chief Complaint Chief Complaint Elevated blood pressure Source Source: Chart review, Patient History of Present Illness Reason for Visit: The patient is a 77-year-old female who's had a history of difficult to control hypertension who reports her blood pressure is been elevated for approximately a week. Patient had episodes for possible insect bite and was started on prednisone although she stated that her blood pressure was elevated prior to the prednisone. She also has a history of coronary artery disease with previous stenting but denies any chest pain. She also has a history of peripheral vascular disease with lower extremity stenting of was seen by the vascular surgical service within the last week and told she was stable. Initial blood pressure was greater than 220 on admission. Patient was in treated with IV Cardene and her Norvasc was increased to [address] head scan showed no acute changes. Chest x-ray showed no acute changes. She is feeling better this morning. Her blood pressure has improved. Past Medical History Cardiovascular: CAD, HTN, Hyperlipidemia, Other (peripheral vascular disease.) Musculoskeletal: Osteoarthritis Past Surgical History Past Surgical History: Other (coronary stents and peripheral stents), No pertinent history Family History Family History: No Significant, Hypertension Social History No ALCOHOL: none Drugs: None Current Medications Current Medications Current Medications Hydralazine HCl (Apresoline Inj) 10 mg 1X ONCE IVP Last administered on 08/13/18at 14:30; Start 08/13/18 at 13:45; Stop 08/13/18 at 13:46; Status DC Ondansetron HCl (Zofran) 4 mg PRN Q4HRS PRN IV NAUSEA/VOMITING; Start 08/13/18 at 14:15 Zolpidem Tartrate (Ambien) 5 mg PRN QHS PRN PO INSOMNIA; Start 08/13/18 at 14:15 Acetaminophen (Tylenol) 650 mg PRN Q4HRS PRN PO TEMP OVER 100.4F OR MILD PAIN; Start 08/13/18 at 14:15 Docusate Sodium (Colace) 100 mg PRN BID PRN PO CONSTIPATION; Start 08/13/18 at 14:15 Albuterol Sulfate (Ventolin Neb Soln) 2.5 mg PRN Q4HRS PRN NEB SHORTNESS OF BREATH; Start 08/13/18 at 14:15 Guaifenesin (Robitussin) 200 mg PRN Q4HRS PRN PO COUGH; Start 08/13/18 at 14:15 Lorazepam (Ativan) 0.5 mg PRN Q4HRS PRN PO ANXIETY / AGITATION; Start 08/13/18 at 14:15 Aspirin (Ecotrin) 81 mg DAILY PO Last administered on 08/14/18at 08:08; Start 08/14/18 at 09:00 Non-Formulary Medication (Alendronate Sodium (Fosamax)) 1 tab WEEKLY PO ; Start 08/20/18 at 09:00; Status UNV Metoprolol Succinate (Toprol Xl) 50 mg DAILY PO Last administered on 08/14/18at 08:09; Start 08/14/18 at 09:00 Nifedipine (Procardia Xl) 60 mg DAILY PO ; Start 08/14/18 at 09:00; Stop 08/14/18 at 09:00; Status DC Atorvastatin Calcium (Lipitor) 40 mg QHS PO Last administered on 08/13/18at 21:02; Start 08/13/18 at 21:00 Losartan Potassium (Cozaar) 100 mg DAILY PO Last administered on 08/14/18at 08:08; Start 08/14/18 at 09:00 Nicardipine HCl 50 mg/Sodium Chloride 250 ml CONT PRN IV SEE I/O RECORD; Start 08/13/18 at 15:15; Stop 08/14/18 at 15:14; Status UNV Nicardipine HCl 50 mg/Sodium Chloride 250 ml @ 25 mls/hr CONT PRN IV SEE I/O RECORD; Start 08/13/18 at 15:30 Pantoprazole Sodium (Protonix) 40 mg DAILYAC PO Last administered on 08/14/18at 08:08; Start 08/13/18 at 15:45 Hydralazine HCl (Apresoline Inj) 10 mg PRN Q4HRS PRN IVP ELEVATED BP, SEE COMMENTS; Start 08/13/18 at 16:30 Amlodipine Besylate (Norvasc) 10 mg HS PO Last administered on 08/13/18at 21:02; Start 08/13/18 at 21:00 Furosemide (Lasix) 20 mg DAILY PO Last administered on 08/14/18at 08:08; Start 08/14/18 at 09:00 Levothyroxine Sodium (Synthroid) 75 mcg DAILY06 PO Last administered on 08/14/18at 05:57; Start 08/14/18 at 06:00 Potassium Chloride (Klor-Con) 10 meq DAILY PO Last administered on 08/14/18at 08:08; Start 08/14/18 at 09:00 Non-Formulary Medication (Omeprazole Magnesium (Prilosec Otc)) 1 tab DAILYBFRSUP PO ; Start 08/13/18 at 17:00; Status UNV Sodium Chloride 1,000 ml @ 1,000 mls/hr 1X ONCE IV Last administered on 08/14/18at 11:24; Start 08/14/18 at 11:15; Stop 08/14/18 at 12:14; Status DC Furosemide (Lasix) 40 mg 1X ONCE IVP Last administered on 08/14/18at 11:24; Start 08/14/18 at 11:15; Stop 08/14/18 at 11:16; Status DC Active Scripts Active Reported Colace (Docusate Sodium) 100 Mg Capsule 1 Cap PO HS Lutein-Zeaxanthin 25-5 Mg Sfgl (Lutein/Zeaxanthin) 1 Each Capsule 1 Each PO YOSEPH Y Magnesium (Magnesium Oxide) 400 Mg Capsule 250 Mg PO DAILY Calcium (Calcium Carbonate) 500 Mg Tab.chew 1,200 Mg PO DAILY Vitamin D (Cholecalciferol (Vitamin D3)) 1,000 Unit Capsule 1,000 Unit PO DAILY Norvasc (Amlodipine Besylate) 5 Mg Tablet 1 Tab PO DAILY Prilosec Otc (Omeprazole Magnesium) 20 Mg Tablet.dr 1 Tab PO DAILYBFRSUP Potassium Chloride 10 Meq Tab.sr.24h 10 Meq PO DAILY Lasix (Furosemide) 20 Mg Tablet 1 Tab PO DAILY Synthroid (Levothyroxine Sodium) 75 Mcg Tablet 1 Tab PO DAILY Crestor (Rosuvastatin Calcium) 10 Mg Tablet 1 Tab PO HS Toprol Xl (Metoprolol Succinate) 50 Mg Tab.er.24h 1 Tab PO DAILY Micardis (Telmisartan) 80 Mg Tablet 1 Tab PO DAILY Aspir 81 (Aspirin) 81 Mg Tablet.dr 1 Tab PO HS Allergies Allergies: Coded Allergies: Sulfa (Sulfonamide Antibiotics) (Verified Allergy, Intermediate, RASH, 12/21/14) clopidogrel (Verified Allergy, Intermediate, RASH, 12/21/14) nitrofurantoin (Verified Allergy, Intermediate, 08/14/18) ROS General: YES: Fatigue Physical Exam General: mild distress HEENT: Atraumatic Lungs: Clear to auscultation Heart: Regular rate Abdomen: Normal bowel sounds Vitals VITALS Vital Signs Date Time Temp Pulse Resp B/P (MAP) Pulse Ox O2 Delivery O2 Flow Rate FiO2 08/14/18 11:04 98.0 55 18 185/85 (118) 97 Room Air 98.0 Labs Labs Laboratory Tests Test 08/13/18 13:10 08/13/18 13:30 08/14/18 04:50 Urine Collection Type Unknown Urine Color Yellow Urine Clarity Clear Urine pH 7.0 Urine Specific [place] <=1.005 Urine Protein Negative mg/dL (NEG-TRACE) Urine Glucose (UA) Negative mg/dL (NEG) Urine Ketones (Stick) Negative mg/dL (NEG) Urine Blood Negative (NEG) Urine Nitrite Negative (NEG) Urine Bilirubin Negative (NEG) Urine Urobilinogen Dipstick 0.2 mg/dL (0.2 mg/dL) Urine Leukocyte Esterase Negative (NEG) Urine RBC 0 /HPF (0-2) Urine WBC 0 /HPF (0-4) Urine Bacteria 0 /HPF (0-FEW) White Blood Count 11.5 x10^3/uL (4.0-11.0) 11.3 x10^3/uL (4.0-11.0) Red Blood Count 4.35 x10^6/uL (3.50-5.40) 4.50 x10^6/uL (3.50-5.40) Hemoglobin 13.6 g/dL (12.0-15.5) 14.1 g/dL (12.0-15.5) Hematocrit 41.4 % (36.0-47.0) 42.8 % (36.0-47.0) Mean Corpuscular Volume 95 fL (79-100) 95 fL (79-100) Mean Corpuscular Hemoglobin 31 pg (25-35) 31 pg (25-35) Mean Corpuscular Hemoglobin Concent 33 g/dL (31-37) 33 g/dL (31-37) Red Cell Distribution Width 13.4 % (11.5-14.5) 13.3 % (11.5-14.5) Platelet Count 221 x10^3/uL (140-400) 217 x10^3/uL (140-400) Neutrophils (%) (Auto) 71 % (31-73) 81 % (31-73) Lymphocytes (%) (Auto) 19 % (24-48) 12 % (24-48) Monocytes (%) (Auto) 9 % (0-9) 6 % (0-9) Eosinophils (%) (Auto) 1 % (0-3) 0 % (0-3) Basophils (%) (Auto) 0 % (0-3) 0 % (0-3) Neutrophils # (Auto) 8.2 x10^3uL (1.8-7.7) 9.2 x10^3uL (1.8-7.7) Lymphocytes # (Auto) 2.2 x10^3/uL (1.0-4.8) 1.4 x10^3/uL (1.0-4.8) Monocytes # (Auto) 1.0 x10^3/uL (0.0-1.1) 0.7 x10^3/uL (0.0-1.1) Eosinophils # (Auto) 0.1 x10^3/uL (0.0-0.7) 0.0 x10^3/uL (0.0-0.7) Basophils # (Auto) 0.0 x10^3/uL (0.0-0.2) 0.0 x10^3/uL (0.0-0.2) Prothrombin Time 13.1 SEC (11.7-14.0) Prothromb Time International Ratio 1.0 (0.8-1.1) Sodium Level 147 mmol/L (136-145) 145 mmol/L (136-145) Potassium Level 3.7 mmol/L (3.5-5.1) 4.3 mmol/L (3.5-5.1) Chloride Level 107 mmol/L (98-107) 108 mmol/L (98-107) Carbon Dioxide Level 32 mmol/L (21-32) 29 mmol/L (21-32) Anion Gap 8 (6-14) 8 (6-14) Blood Urea Nitrogen 30 mg/dL (7-20) 37 mg/dL (7-20) Creatinine 1.2 mg/dL (0.6-1.0) 1.2 mg/dL (0.6-1.0) Estimated GFR (Cockcroft-Gault) 43.6 43.6 BUN/Creatinine Ratio 25 (6-20) Glucose Level 90 mg/dL (70-99) 99 mg/dL (70-99) Calcium Level 11.5 mg/dL (8.5-10.1) 11.1 mg/dL (8.5-10.1) Total Bilirubin 0.4 mg/dL (0.2-1.0) Aspartate Amino Transf (AST/SGOT) 16 U/L (15-37) Alanine Aminotransferase (ALT/SGPT) 22 U/L (14-59) Alkaline Phosphatase 54 U/L (46-116) Creatine Kinase 20 U/L (26-192) Troponin I Quantitative < 0.017 ng/mL (0.000-0.055) KK-Ctq-G-Type Natriuretic Peptide 1828 pg/mL (0-449) Total Protein 6.9 g/dL (6.4-8.2) Albumin 3.6 g/dL (3.4-5.0) Albumin/Globulin Ratio 1.1 (1.0-1.7) Lipase 181 U/L (73-393) Laboratory Tests Test 08/14/18 04:50 White Blood Count 11.3 x10^3/uL (4.0-11.0) Red Blood Count 4.50 x10^6/uL (3.50-5.40) Hemoglobin 14.1 g/dL (12.0-15.5) Hematocrit 42.8 % (36.0-47.0) Mean Corpuscular Volume 95 fL (79-100) Mean Corpuscular Hemoglobin 31 pg (25-35) Mean Corpuscular Hemoglobin Concent 33 g/dL (31-37) Red Cell Distribution Width 13.3 % (11.5-14.5) Platelet Count 217 x10^3/uL (140-400) Neutrophils (%) (Auto) 81 % (31-73) Lymphocytes (%) (Auto) 12 % (24-48) Monocytes (%) (Auto) 6 % (0-9) Eosinophils (%) (Auto) 0 % (0-3) Basophils (%) (Auto) 0 % (0-3) Neutrophils # (Auto) 9.2 x10^3uL (1.8-7.7) Lymphocytes # (Auto) 1.4 x10^3/uL (1.0-4.8) Monocytes # (Auto) 0.7 x10^3/uL (0.0-1.1) Eosinophils # (Auto) 0.0 x10^3/uL (0.0-0.7) Basophils # (Auto) 0.0 x10^3/uL (0.0-0.2) Sodium Level 145 mmol/L (136-145) Potassium Level 4.3 mmol/L (3.5-5.1) Chloride Level 108 mmol/L (98-107) Carbon Dioxide Level 29 mmol/L (21-32) Anion Gap 8 (6-14) Blood Urea Nitrogen 37 mg/dL (7-20) Creatinine 1.2 mg/dL (0.6-1.0) Estimated GFR (Cockcroft-Gault) 43.6 Glucose Level 99 mg/dL (70-99) Calcium Level 11.1 mg/dL (8.5-10.1) Images Images Head CT scan shows no acute changes. Chest x-ray shows no acute changes. Assessment/Plan Assessment/Plan 1. Accelerated hypertension. Patient's blood pressure has been elevated over the past week. She has also been on steroids. She was treated with IV Cardene overnight. Her Norvasc was increased from 5-10 mg a day. She is feeling better t jenniffer. Will taper IV medications and monitor. 2. Coronary artery disease with previous stenting. No chest pain. Doing well. Continue present treatment. 3. Peripheral vascular disease. Status post previous lower extremity stenting. Was seen by the vascular surgeons within the week and is doing well. 4. Hyperlipidemia. Continue medical treatment. We'll check a cholesterol panel. Thank you for allowing us to participate in the care of your patient. NELSON OVIEDO MD Aug 14, 2018 15:07
[2018-08-14] MEDS ORDERED: IV NORMAL SALINE 1000ML BAG 1,000 ML IV SCH (18:15)
[2018-08-14 19:10] VITALS: BP 99/54
[2018-08-14] MEDS: ATORVASTATIN CALCIUM 40 MG TABLET. PO SCH (20:31)
[2018-08-14] MEDS: amLODIPine BESYLATE 10 MG TABLET PO SCH (20:32)
[2018-08-14 23:47] VITALS: BP 109/55
[2018-08-15] VITALS (7 sets, daily range): BP systolic 85–203; BP diastolic 55–87
[2018-08-15] MEDS ORDERED: FUROSEMIDE 20 MG/2 ML VIAL. IVP ONE (06:00)
[2018-08-15 06:01] LABS: CALCIUM 10.4 mg/dL (8.5-10.1); CREATININE 1.4 mg/dL (0.6-1.0); GFR 36.5; POTASSIUM 4.1 mmol/L (3.5-5.1)
[2018-08-15 06:02] LABS: CHOLESTEROL/HDL RATIO 2.2
[2018-08-15] MEDS: LEVOTHYROXINE 75 MCG TABLET PO SCH (06:14)
[2018-08-15] MEDS: PANTOPRAZOLE 40 MG TABLET.DR. PO SCH (07:54)
[2018-08-15] MEDS: ASPIRIN ENTERIC COATED 81 MG TABLET.DR. PO SCH (07:55)
[2018-08-15] MEDS: METOPROLOL SUCC 24HR ER 50 MG TAB.ER.24H. PO SCH (07:55)
[2018-08-15] MEDS: POTASSIUM CHLORIDE 10 MEQ TABLET.ER. PO SCH (07:55)
[2018-08-15] MEDS: FUROSEMIDE 20 MG TABLET PO SCH (07:55)
[2018-08-15] MEDS: LOSARTAN POTASSIUM 50 MG TABLET. PO SCH (07:56)
[2018-08-15 12:08] LABS: CALCIUM PTH 10.8 mg/dL (8.7-10.3); CREATININE PTH 1.15 mg/dL (0.57-1.00); PHOSPHORUS PTH 3.6 mg/dL (2.5-4.5); PTH INTACT 84 pg/mL (15-65)
--- NOTE | 2018-08-15 12:50 | PDOC ---
PROGRESS NOTES Subjective Subjective Patient seen and examined Objective Objective Vital Signs Date Time Temp Pulse Resp B/P (MAP) Pulse Ox O2 Delivery O2 Flow Rate FiO2 08/15/18 11:00 97.9 60 16 113/59 (77) 97 Room Air 97.9 Intake and Output 08/15/18 07:00 Intake Total 2300 ml Balance 2300 ml Intake Oral 400 ml IV Total 900 ml Blood Product IV Normal Saline Flush 1000 ml # Voids 3 Physical Exam Heart: Regular rate Extremities: No clubbing General: No acute distress Lungs: Clear to auscultation Assessment Assessment 1. Accelerated hypertension. His blood pressure was elevated earlier today but now is under much better control. Will continue on present dosing of Norvasc 10 mg a day. We will change Lasix to hydrochlorothiazide and monitor blood pressure. 2. Coronary artery disease with previous stenting. No chest pain. Doing well. Continue present treatment. 3. Peripheral vascular disease. Status post previous lower extremity stenting. Was seen by the vascular surgeons within the week and is doing well. 4. Hyperlipidemia. Continue medical treatment. Comment Review of Relevant I have reviewed the following items marjorie (where applicable) has been applied. Labs Laboratory Tests Test 08/13/18 13:10 08/13/18 13:30 08/14/18 04:50 08/14/18 16:10 Urine Collection Type Unknown Urine Color Yellow Urine Clarity Clear Urine pH 7.0 Urine Specific [place] <=1.005 Urine Protein Negative mg/dL (NEG-TRACE) Urine Glucose (UA) Negative mg/dL (NEG) Urine Ketones (Stick) Negative mg/dL (NEG) Urine Blood Negative (NEG) Urine Nitrite Negative (NEG) Urine Bilirubin Negative (NEG) Urine Urobilinogen Dipstick 0.2 mg/dL (0.2 mg/dL) Urine Leukocyte Esterase Negative (NEG) Urine RBC 0 /HPF (0-2) Urine WBC 0 /HPF (0-4) Urine Bacteria 0 /HPF (0-FEW) White Blood Count 11.5 x10^3/uL (4.0-11.0) 11.3 x10^3/uL (4.0-11.0) Red Blood Count 4.35 x10^6/uL (3.50-5.40) 4.50 x10^6/uL (3.50-5.40) Hemoglobin 13.6 g/dL (12.0-15.5) 14.1 g/dL (12.0-15.5) Hematocrit 41.4 % (36.0-47.0) 42.8 % (36.0-47.0) Mean Corpuscular Volume 95 fL (79-100) 95 fL (79-100) Mean Corpuscular Hemoglobin 31 pg (25-35) 31 pg (25-35) Mean Corpuscular Hemoglobin Concent 33 g/dL (31-37) 33 g/dL (31-37) Red Cell Distribution Width 13.4 % (11.5-14.5) 13.3 % (11.5-14.5) Platelet Count 221 x10^3/uL (140-400) 217 x10^3/uL (140-400) Neutrophils (%) (Auto) 71 % (31-73) 81 % (31-73) Lymphocytes (%) (Auto) 19 % (24-48) 12 % (24-48) Monocytes (%) (Auto) 9 % (0-9) 6 % (0-9) Eosinophils (%) (Auto) 1 % (0-3) 0 % (0-3) Basophils (%) (Auto) 0 % (0-3) 0 % (0-3) Neutrophils # (Auto) 8.2 x10^3uL (1.8-7.7) 9.2 x10^3uL (1.8-7.7) Lymphocytes # (Auto) 2.2 x10^3/uL (1.0-4.8) 1.4 x10^3/uL (1.0-4.8) Monocytes # (Auto) 1.0 x10^3/uL (0.0-1.1) 0.7 x10^3/uL (0.0-1.1) Eosinophils # (Auto) 0.1 x10^3/uL (0.0-0.7) 0.0 x10^3/uL (0.0-0.7) Basophils # (Auto) 0.0 x10^3/uL (0.0-0.2) 0.0 x10^3/uL (0.0-0.2) Prothrombin Time 13.1 SEC (11.7-14.0) Prothromb Time International Ratio 1.0 (0.8-1.1) Sodium Level 147 mmol/L (136-145) 145 mmol/L (136-145) Potassium Level 3.7 mmol/L (3.5-5.1) 4.3 mmol/L (3.5-5.1) Chloride Level 107 mmol/L (98-107) 108 mmol/L (98-107) Carbon Dioxide Level 32 mmol/L (21-32) 29 mmol/L (21-32) Anion Gap 8 (6-14) 8 (6-14) Blood Urea Nitrogen 30 mg/dL (7-20) 37 mg/dL (7-20) Creatinine 1.2 mg/dL (0.6-1.0) 1.2 mg/dL (0.6-1.0) Estimated GFR (Cockcroft-Gault) 43.6 43.6 BUN/Creatinine Ratio 25 (6-20) Glucose Level 90 mg/dL (70-99) 99 mg/dL (70-99) Calcium Level 11.5 mg/dL (8.5-10.1) 11.1 mg/dL (8.5-10.1) Total Bilirubin 0.4 mg/dL (0.2-1.0) Aspartate Amino Transf (AST/SGOT) 16 U/L (15-37) Alanine Aminotransferase (ALT/SGPT) 22 U/L (14-59) Alkaline Phosphatase 54 U/L (46-116) Creatine Kinase 20 U/L (26-192) Troponin I Quantitative < 0.017 ng/mL (0.000-0.055) AU-Tok-Y-Type Natriuretic Peptide 1828 pg/mL (0-449) Total Protein 6.9 g/dL (6.4-8.2) Albumin 3.6 g/dL (3.4-5.0) Albumin/Globulin Ratio 1.1 (1.0-1.7) Lipase 181 U/L (73-393) Estimated GFR (Non- 46 (>59) Ionized Calcium 1.39 mmol/L (1.13-1.32) Phosphorus Level 3.8 mg/dL (2.6-4.7) EGFR 53 (>59) PTH (Intact) Specimen Description Comment (.) Parathyroid Hormone (Intact) 84 pg/mL (15-65) Calcium (PTH Intact) 10.8 mg/dL (8.7-10.3) Creatinine (PTH Intact) 1.15 mg/dL (0.57-1.00) Phosphorus (PTH Intact) 3.6 mg/dL (2.5-4.5) Test 08/15/18 04:45 08/15/18 11:20 Sodium Level 146 mmol/L (136-145) Potassium Level 4.1 mmol/L (3.5-5.1) Chloride Level 109 mmol/L (98-107) Carbon Dioxide Level 27 mmol/L (21-32) Anion Gap 10 (6-14) Blood Urea Nitrogen 44 mg/dL (7-20) Creatinine 1.4 mg/dL (0.6-1.0) Estimated GFR (Cockcroft-Gault) 36.5 Glucose Level 78 mg/dL (70-99) Calcium Level 10.4 mg/dL (8.5-10.1) Triglycerides Level 67 mg/dL (0-150) Cholesterol Level 128 mg/dL (0-200) LDL Cholesterol, Calculated 58 mg/dL (0-100) VLDL Cholesterol, Calculated 13 mg/dL (0-40) Non-HDL Cholesterol Calculated 71 mg/dL (0-129) HDL Cholesterol 57 mg/dL (40-60) Cholesterol/HDL Ratio 2.2 Ionized Calcium 1.45 mmol/L (1.13-1.32) Laboratory Tests Test 08/14/18 16:10 08/15/18 04:45 08/15/18 11:20 Estimated GFR (Non- 46 (>59) Ionized Calcium 1.39 mmol/L (1.13-1.32) 1.45 mmol/L (1.13-1.32) Phosphorus Level 3.8 mg/dL (2.6-4.7) EGFR 53 (>59) PTH (Intact) Specimen Description Comment (.) Parathyroid Hormone (Intact) 84 pg/mL (15-65) Calcium (PTH Intact) 10.8 mg/dL (8.7-10.3) Creatinine (PTH Intact) 1.15 mg/dL (0.57-1.00) Phosphorus (PTH Intact) 3.6 mg/dL (2.5-4.5) Sodium Level 146 mmol/L (136-145) Potassium Level 4.1 mmol/L (3.5-5.1) Chloride Level 109 mmol/L (98-107) Carbon Dioxide Level 27 mmol/L (21-32) Anion Gap 10 (6-14) Blood Urea Nitrogen 44 mg/dL (7-20) Creatinine 1.4 mg/dL (0.6-1.0) Estimated GFR (Cockcroft-Gault) 36.5 Glucose Level 78 mg/dL (70-99) Calcium Level 10.4 mg/dL (8.5-10.1) Triglycerides Level 67 mg/dL (0-150) Cholesterol Level 128 mg/dL (0-200) LDL Cholesterol, Calculated 58 mg/dL (0-100) VLDL Cholesterol, Calculated 13 mg/dL (0-40) Non-HDL Cholesterol Calculated 71 mg/dL (0-129) HDL Cholesterol 57 mg/dL (40-60) Cholesterol/HDL Ratio 2.2 Medications Current Medications Hydralazine HCl (Apresoline Inj) 10 mg 1X ONCE IVP Last administered on 08/13/18at 14:30; Start 08/13/18 at 13:45; Stop 08/13/18 at 13:46; Status DC Ondansetron HCl (Zofran) 4 mg PRN Q4HRS PRN IV NAUSEA/VOMITING; Start 08/13/18 at 14:15 Zolpidem Tartrate (Ambien) 5 mg PRN QHS PRN PO INSOMNIA; Start 08/13/18 at 14:15 Acetaminophen (Tylenol) 650 mg PRN Q4HRS PRN PO TEMP OVER 100.4F OR MILD PAIN; Start 08/13/18 at 14:15 Docusate Sodium (Colace) 100 mg PRN BID PRN PO CONSTIPATION; Start 08/13/18 at 14:15 Albuterol Sulfate (Ventolin Neb Soln) 2.5 mg PRN Q4HRS PRN NEB SHORTNESS OF BREATH; Start 08/13/18 at 14:15 Guaifenesin (Robitussin) 200 mg PRN Q4HRS PRN PO COUGH; Start 08/13/18 at 14:15 Lorazepam (Ativan) 0.5 mg PRN Q4HRS PRN PO ANXIETY / AGITATION; Start 08/13/18 at 14:15 Aspirin (Ecotrin) 81 mg DAILY PO Last administered on 08/15/18at 07:55; Start 08/14/18 at 09:00 Non-Formulary Medication (Alendronate Sodium (Fosamax)) 1 tab WEEKLY PO ; Start 08/20/18 at 09:00; Status UNV Metoprolol Succinate (Toprol Xl) 50 mg DAILY PO Last administered on 08/15/18at 07:55; Start 08/14/18 at 09:00 Nifedipine (Procardia Xl) 60 mg DAILY PO ; Start 08/14/18 at 09:00; Stop 08/14/18 at 09:00; Status DC Atorvastatin Calcium (Lipitor) 40 mg QHS PO Last administered on 08/14/18at 20:31; Start 08/13/18 at 21:00 Losartan Potassium (Cozaar) 100 mg DAILY PO Last administered on 08/15/18 07:5 6; Start 08/14/18 at 09:00 Nicardipine HCl 50 mg/Sodium Chloride 250 ml CONT PRN IV SEE I/O RECORD; Start 08/13/18 at 15:15; Stop 08/14/18 at 15:14; Status UNV Nicardipine HCl 50 mg/Sodium Chloride 250 ml @ 25 mls/hr CONT PRN IV SEE I/O RECORD; Start 08/13/18 at 15:30 Pantoprazole Sodium (Protonix) 40 mg DAILYAC PO Last administered on 08/15/18at 07:54; Start 08/13/18 at 15:45 Hydralazine HCl (Apresoline Inj) 10 mg PRN Q4HRS PRN IVP ELEVATED BP, SEE COMMENTS Last administered on 08/15/18at 03:49; Start 08/13/18 at 16:30 Amlodipine Besylate (Norvasc) 10 mg HS PO Last administered on 08/13/18at 21:02; Start 08/13/18 at 21:00 Furosemide (Lasix) 20 mg DAILY PO Last administered on 08/15/18 07:55; Start 08/14/18 at 09:00 Levothyroxine Sodium (Synthroid) 75 mcg DAILY06 PO Last administered on 08/15/18 06:14; Start 08/14/18 at 06:00 Potassium Chloride (Klor-Con) 10 meq DAILY PO Last administered on 08/15/18at 07:55; Start 08/14/18 at 09:00 Non-Formulary Medication (Omeprazole Magnesium (Prilosec Otc)) 1 tab DAILYBFRSUP PO ; Start 08/13/18 at 17:00; Status UNV Sodium Chloride 1,000 ml @ 1,000 mls/hr 1X ONCE IV Last administered on 08/14/18at 11:24; Start 08/14/18 at 11:15; Stop 08/14/18 at 12:14; Status DC Furosemide (Lasix) 40 mg 1X ONCE IVP Last administered on 08/14/18at 11:24; Start 08/14/18 at 11:15; Stop 08/14/18 at 11:16; Status DC Sodium Chloride 1,000 ml @ 75 mls/hr [id number] IV Last administered on 08/14/18at 18:38; Start 08/14/18 at 18:15; Stop 08/15/18 at 07:34; Status DC Furosemide (Lasix) 20 mg 1X ONCE IVP Last administered on 08/15/18at 06:15; Start 08/15/18 at 06:00; Stop 08/15/18 at 06:01; Status DC Active Scripts Active Reported Colace (Docusate Sodium) 100 Mg Capsule 1 Cap PO HS Lutein-Zeaxanthin 25-5 Mg Sfgl (Lutein/Zeaxanthin) 1 Each Capsule 1 Each PO DAILY Magnesium (Magnesium Oxide) 400 Mg Capsule 250 Mg PO DAILY Calcium (Calcium Carbonate) 500 Mg Tab.chew 1,200 Mg PO DAILY Vitamin D (Cholecalciferol (Vitamin D3)) 1,000 Unit Capsule 1,000 Unit PO DAILY Norvasc (Amlodipine Besylate) 5 Mg Tablet 1 Tab PO DAILY Prilosec Otc (Omeprazole Magnesium) 20 Mg Tablet.dr 1 Tab PO DAILYBFRSUP Potassium Chloride 10 Meq Tab.sr.24h 10 Meq PO DAILY Lasix (Furosemide) 20 Mg Tablet 1 Tab PO DAILY Synthroid (Levothyroxine Sodium) 75 Mcg Tablet 1 Tab PO DAILY Crestor (Rosuvastatin Calcium) 10 Mg Tablet 1 Tab PO HS Toprol Xl (Metoprolol Succinate) 50 Mg Tab.er.24h 1 Tab PO DAILY Micardis (Telmisartan) 80 Mg Tablet 1 Tab PO DAILY Aspir 81 (Aspirin) 81 Mg Tablet.dr 1 Tab PO HS Vitals/I & O Vital Sign - Last 24 Hours 08/14/18 08/14/18 08/14/18 08/14/18 15:00 19:09 19:10 20:32 Temp 98.0 97.9 98.0 97.9 Pulse 54 54 54 Resp 18 20 B/P (MAP) 91/51 (64) 99/54 (69) 99/54 Pulse Ox 96 98 O2 Delivery Room Air Room Air Room Air 08/14/18 08/15/18 08/15/18 08/15/18 23:47 03:45 03:49 04:33 Temp 98.1 98.0 98.1 98.0 Pulse 54 55 56 60 Resp 20 18 B/P (MAP) 109/55 (73) 203/87 (125) 203/87 140/63 (88) Pulse Ox 96 98 O2 Delivery Room Air Room Air 08/15/18 08/15/18 08/15/18 08/15/18 07:00 07:55 07:56 08:00 Temp 97.8 97.8 Pulse 60 71 71 Resp 16 B/P (MAP) 122/56 (78) 122/56 122/56 Pulse Ox 97 O2 Delivery Room Air Room Air 08/15/18 11:00 Temp 97.9 97.9 Pulse 60 Resp 16 B/P (MAP) 113/59 (77) Pulse Ox 97 O2 Delivery Room Air Intake and Output 08/14/18 08/14/18 08/15/18 15:00 23:00 07:00 Intake Total 1000 ml 250 ml 1050 ml Balance 1000 ml 250 ml 1050 ml NELSON OVIEDO MD Aug 15, 2018 12:50
--- NOTE | 2018-08-15 13:30 | PDOC ---
PROGRESS NOTES Chief Complaint Chief Complaint Hypertensive urgency Moderate dehydration contiues to have low oral intake, I have encouraged more water intake history of CAD currently asymptomatic Leukocytosis - likely hemoconcentration given her electrolyte results Hypernatremia Hypercalcemia still present which may be due to dehydration Plan: will check PTH will check urinary calcium will check vitamin D levels as well. start HCTZ for BP control. hopefully discharge once bp has been better controlled without the ups and downs that the patient's is worried about. she may have an emotional componen to the her hypertension as well. follow up in the am History of Present Illness History of Present Illness Patient is a 77-year-old female with past medical history of hypertension, osteoporosis (on prolia) who was in her usual state of health until approximately one week prior to her admission. The patient was prescribed pred nisone in the outpatient setting and noted 190s to 200 systolic range. The patient denies dietary transgressions no changes to her recent medications recently. The patient denies excess salt intake nevertheless her readings have been consistently high. Patient also refers having headache as a consequence of her elevated blood pressure. She denies blurred vision but she does feel li ghtheaded and "foggy". She has not loss consciousness no chest pain no palpitations no chest fullness was described. Patient denies slurred speech no palpitations no abdominal pain no urinary symptoms no lower extremity edema no other symptoms were voiced by the patient. She was found to have a blood pressure greater than 220 systolic reason why we were asked to admit the patient for antihypertensive regimen. Calcium level notably 11.5 with Albumin of 3.7 Patient has not had recent changes to her medications patient's was concerned that she was going to suffer from a stroke I have provided reassurance and explained the plan of care in detail as well. Certainly the patient is at risk given her high readings for a CVA event nevertheless at the time my evaluation the patient is in no apparent distress and not exhibiting any neurological deficits. She does have a history of feeling "lightheaded as a consequence of her high blood pressure Overnight BP controlled with home meds and PRN hydralazine. Calcium still elevated this morning. Plan: IVF and lasix to lower her calcium level. Check PTH, phos, vitamin D levels. Would hold off on prolia for now. Vitals Vitals Vital Signs Date Time Temp Pulse Resp B/P (MAP) Pulse Ox O2 Delivery O2 Flow Rate FiO2 08/15/18 11:00 97.9 60 16 113/59 (77) 97 Room Air 97.9 Physical Exam General: No acute distress Heart: Regular rate Lungs: Clear, Wheezing Abdomen: Normal bowel sounds Extremities: No clubbing Skin: No rashes, No breakdown Labs LABS Laboratory Tests Test 08/14/18 16:10 08/15/18 04:45 08/15/18 11:20 Estimated GFR (Non- 46 (>59) Ionized Calcium 1.39 mmol/L (1.13-1.32) 1.45 mmol/L (1.13-1.32) Phosphorus Level 3.8 mg/dL (2.6-4.7) EGFR 53 (>59) PTH (Intact) Specimen Description Comment (.) Parathyroid Hormone (Intact) 84 pg/mL (15-65) Calcium (PTH Intact) 10.8 mg/dL (8.7-10.3) Creatinine (PTH Intact) 1.15 mg/dL (0.57-1.00) Phosphorus (PTH Intact) 3.6 mg/dL (2.5-4.5) Sodium Level 146 mmol/L (136-145) Potassium Level 4.1 mmol/L (3.5-5.1) Chloride Level 109 mmol/L (98-107) Carbon Dioxide Level 27 mmol/L (21-32) Anion Gap 10 (6-14) Blood Urea Nitrogen 44 mg/dL (7-20) Creatinine 1.4 mg/dL (0.6-1.0) Estimated GFR (Cockcroft-Gault) 36.5 Glucose Level 78 mg/dL (70-99) Calcium Level 10.4 mg/dL (8.5-10.1) Triglycerides Level 67 mg/dL (0-150) Cholesterol Level 128 mg/dL (0-200) LDL Cholesterol, Calculated 58 mg/dL (0-100) VLDL Cholesterol, Calculated 13 mg/dL (0-40) Non-HDL Cholesterol Calculated 71 mg/dL (0-129) HDL Cholesterol 57 mg/dL (40-60) Cholesterol/HDL Ratio 2.2 Comment Review of Relevant I have reviewed the following items majrorie (where applicable) has been applied. Labs Laboratory Tests Test 08/13/18 13:30 08/14/18 04:50 08/14/18 16:10 08/15/18 04:45 White Blood Count 11.5 x10^3/uL (4.0-11.0) 11.3 x10^3/uL (4.0-11.0) Red Blood Count 4.35 x10^6/uL (3.50-5.40) 4.50 x10^6/uL (3.50-5.40) Hemoglobin 13.6 g/dL (12.0-15.5) 14.1 g/dL (12.0-15.5) Hematocrit 41.4 % (36.0-47.0) 42.8 % (36.0-47.0) Mean Corpuscular Volume 95 fL (79-100) 95 fL (79-100) Mean Corpuscular Hemoglobin 31 pg (25-35) 31 pg (25-35) Mean Corpuscular Hemoglobin Concent 33 g/dL (31-37) 33 g/dL (31-37) Red Cell Distribution Width 13.4 % (11.5-14.5) 13.3 % (11.5-14.5) Platelet Count 221 x10^3/uL (140-400) 217 x10^3/uL (140-400) Neutrophils (%) (Auto) 71 % (31-73) 81 % (31-73) Lymphocytes (%) (Auto) 19 % (24-48) 12 % (24-48) Monocytes (%) (Auto) 9 % (0-9) 6 % (0-9) Eosinophils (%) (Auto) 1 % (0-3) 0 % (0-3) Basophils (%) (Auto) 0 % (0-3) 0 % (0-3) Neutrophils # (Auto) 8.2 x10^3uL (1.8-7.7) 9.2 x10^3uL (1.8-7.7) Lymphocytes # (Auto) 2.2 x10^3/uL (1.0-4.8) 1.4 x10^3/uL (1.0-4.8) Monocytes # (Auto) 1.0 x10^3/uL (0.0-1.1) 0.7 x10^3/uL (0.0-1.1) Eosinophils # (Auto) 0.1 x10^3/uL (0.0-0.7) 0.0 x10^3/uL (0.0-0.7) Basophils # (Auto) 0.0 x10^3/uL (0.0-0.2) 0.0 x10^3/uL (0.0-0.2) Prothrombin Time 13.1 SEC (11.7-14.0) Prothromb Time International Ratio 1.0 (0.8-1.1) Sodium Level 147 mmol/L (136-145) 145 mmol/L (136-145) 146 mmol/L (136-145) Potassium Level 3.7 mmol/L (3.5-5.1) 4.3 mmol/L (3.5-5.1) 4.1 mmol/L (3.5-5.1) Chloride Level 107 mmol/L (98-107) 108 mmol/L (98-107) 109 mmol/L (98-107) Carbon Dioxide Level 32 mmol/L (21-32) 29 mmol/L (21-32) 27 mmol/L (21-32) Anion Gap 8 (6-14) 8 (6-14) 10 (6-14) Blood Urea Nitrogen 30 mg/dL (7-20) 37 mg/dL (7-20) 44 mg/dL (7-20) Creatinine 1.2 mg/dL (0.6-1.0) 1.2 mg/dL (0.6-1.0) 1.4 mg/dL (0.6-1.0) Estimated GFR (Cockcroft-Gault) 43.6 43.6 36.5 BUN/Creatinine Ratio 25 (6-20) Glucose Level 90 mg/dL (70-99) 99 mg/dL (70-99) 78 mg/dL (70-99) Calcium Level 11.5 mg/dL (8.5-10.1) 11.1 mg/dL (8.5-10.1) 10.4 mg/dL (8.5-10.1) Total Bilirubin 0.4 mg/dL (0.2-1.0) Aspartate Amino Transf (AST/SGOT) 16 U/L (15-37) Alanine Aminotransferase (ALT/SGPT) 22 U/L (14-59) Alkaline Phosphatase 54 U/L (46-116) Creatine Kinase 20 U/L (26-192) Troponin I Quantitative < 0.017 ng/mL (0.000-0.055) MZ-Kuc-[id number]-Type Natriuretic Peptide 1828 pg/mL (0-449) Total Protein 6.9 g/dL (6.4-8.2) Albumin 3.6 g/dL (3.4-5.0) Albumin/Globulin Ratio 1.1 (1.0-1.7) Lipase 181 U/L (73-393) Estimated GFR (Non- 46 (>59) Ionized Calcium 1.39 mmol/L (1.13-1.32) Phosphorus Level 3.8 mg/dL (2.6-4.7) EGFR 53 (>59) PTH (Intact) Specimen Description Comment (.) Parathyroid Hormone (Intact) 84 pg/mL (15-65) Calcium (PTH Intact) 10.8 mg/dL (8.7-10.3) Creatinine (PTH Intact) 1.15 mg/dL (0.57-1.00) Phosphorus (PTH Intact) 3.6 mg/dL (2.5-4.5) Triglycerides Level 67 mg/dL (0-150) Cholesterol Level 128 mg/dL (0-200) LDL Cholesterol, Calculated 58 mg/dL (0-100) VLDL Cholesterol, Calculated 13 mg/dL (0-40) Non-HDL Cholesterol Calculated 71 mg/dL (0-129) HDL Cholesterol 57 mg/dL (40-60) Cholesterol/HDL Ratio 2.2 Test 08/15/18 11:20 Ionized Calcium 1.45 mmol/L (1.13-1.32) Laboratory Tests Test 08/14/18 16:10 08/15/18 04:45 08/15/18 11:20 Estimated GFR (Non- 46 (>59) Ionized Calcium 1.39 mmol/L (1.13-1.32) 1.45 mmol/L (1.13-1.32) Phosphorus Level 3.8 mg/dL (2.6-4.7) EGFR 53 (>59) PTH (Intact) Specimen Description Comment (.) Parathyroid Hormone (Intact) 84 pg/mL (15-65) Calcium (PTH Intact) 10.8 mg/dL (8.7-10.3) Creatinine (PTH Intact) 1.15 mg/dL (0.57-1.00) Phosphorus (PTH Intact) 3.6 mg/dL (2.5-4.5) Sodium Level 146 mmol/L (136-145) Potassium Level 4.1 mmol/L (3.5-5.1) Chloride Level 109 mmol/L (98-107) Carbon Dioxide Level 27 mmol/L (21-32) Anion Gap 10 (6-14) Blood Urea Nitrogen 44 mg/dL (7-20) Creatinine 1.4 mg/dL (0.6-1.0) Estimated GFR (Cockcroft-Gault) 36.5 Glucose Level 78 mg/dL (70-99) Calcium Level 10.4 mg/dL (8.5-10.1) Triglycerides Level 67 mg/dL (0-150) Cholesterol Level 128 mg/dL (0-200) LDL Cholesterol, Calculated 58 mg/dL (0-100) VLDL Cholesterol, Calculated 13 mg/dL (0-40) Non-HDL Cholesterol Calculated 71 mg/dL (0-129) HDL Cholesterol 57 mg/dL (40-60) Cholesterol/HDL Ratio 2.2 Medications Current Medications Hydralazine HCl (Apresoline Inj) 10 mg 1X ONCE IVP Last administered on 08/13/18at 14:30; Start 08/13/18 at 13:45; Stop 08/13/18 at 13:46; Status DC Ondansetron HCl (Zofran) 4 mg PRN Q4HRS PRN IV NAUSEA/VOMITING; Start 08/13/18 at 14:15 Zolpidem Tartrate (Ambien) 5 mg PRN QHS PRN PO INSOMNIA; Start 08/13/18 at 14:15 Acetaminophen (Tylenol) 650 mg PRN Q4HRS PRN PO TEMP OVER 100.4F OR MILD PAIN; Start 08/13/18 at 14:15 Docusate Sodium (Colace) 100 mg PRN BID PRN PO CONSTIPATION; Start 08/13/18 at 14:15 Albuterol Sulfate (Ventolin Neb Soln) 2.5 mg PRN Q4HRS PRN NEB SHORTNESS OF BREATH; Start 08/13/18 at 14:15 Guaifenesin (Robitussin) 200 mg PRN Q4HRS PRN PO COUGH; Start 08/13/18 at 14:15 Lorazepam (Ativan) 0.5 mg PRN Q4HRS PRN PO ANXIETY / AGITATION; Start 08/13/18 at 14:15 Aspirin (Ecotrin) 81 mg DAILY PO Last administered on 08/15/18at 07:55; Start 08/14/18 at 09:00 Non-Formulary Medication (Alendronate Sodium (Fosamax)) 1 tab WEEKLY PO ; Start 08/20/18 at 09:00; Status UNV Metoprolol Succinate (Toprol Xl) 50 mg DAILY PO Last administered on 08/15/18at 07:55; Start 08/14/18 at 09:00 Nifedipine (Procardia Xl) 60 mg DAILY PO ; Start 08/14/18 at 09:00; Stop 08/14/18 at 09:00; Status DC Atorvastatin Calcium (Lipitor) 40 mg QHS PO Last administered on 08/14/18at 20:31; Start 08/13/18 at 21:00 Losartan Potassium (Cozaar) 100 mg DAILY PO Last administered on 08/15/18at 07:56; Start 08/14/18 at 09:00 Nicardipine HCl 50 mg/Sodium Chloride 250 ml CONT PRN IV SEE I/O RECORD; Start 08/13/18 at 15:15; Stop 08/14/18 at 15:14; Status UNV Nicardipine HCl 50 mg/Sodium Chloride 250 ml @ 25 mls/hr CONT PRN IV SEE I/O RECORD; Start 08/13/18 at 15:30 Pantoprazole Sodium (Protonix) 40 mg DAILYAC PO Last administered on 08/15/18at 07:54; Start 08/13/18 at 15:45 Hydralazine HCl (Apresoline Inj) 10 mg PRN Q4HRS PRN IVP ELEVATED BP, SEE COMMENTS Last administered on 08/15/18at 03:49; Start 08/13/18 at 16:30 Amlodipine Besylate (Norvasc) 10 mg HS PO Last administered on 08/13/18at 21:02; Start 08/13/18 at 21:00 Furosemide (Lasix) 20 mg DAILY PO Last administered on 08/15/18at 07:55; Start 08/14/18 at 09:00; Stop 08/15/18 at 12:51; Status DC Levothyroxine Sodium (Synthroid) 75 mcg DAILY06 PO Last administered on 08/15/18at 06:14; Start 08/14/18 at 06:00 Potassium Chloride (Klor-Con) 10 meq DAILY PO Last administered on 08/15/18at 07:55; Start 08/14/18 at 09:00 Non-Formulary Medication (Omeprazole Magnesium (Prilosec Otc)) 1 tab DAILYBFRSUP PO ; Start 08/13/18 at 17:00; Status UNV Sodium Chloride 1,000 ml @ 1,000 mls/hr 1X ONCE IV Last administered on 08/14/18at 11:24; Start 08/14/18 at 11:15; Stop 08/14/18 at 12:14; Status DC Furosemide (Lasix) 40 mg 1X ONCE IVP Last administered on 08/14/18at 11:24; Start 08/14/18 at 11:15; Stop 08/14/18 at 11:16; Status DC Sodium Chloride 1,000 ml @ 75 mls/hr [id number] IV Last administered on 08/14/18at 18:38; Start 08/14/18 at 18:15; Stop 08/15/18 at 07:34; Status DC Furosemide (Lasix) 20 mg 1X ONCE IVP Last administered on 08/15/18at 06:15; Start 08/15/18 at 06:00; Stop 08/15/18 at 06:01; Status DC Hydrochlorothiazide (Hydrodiuril) 25 mg DAILY PO ; Start 08/16/18 at 09:00 Active Scripts Active Reported Colace (Docusate Sodium) 100 Mg Capsule 1 Cap PO HS Lutein-Zeaxanthin 25-5 Mg Sfgl (Lutein/Zeaxanthin) 1 Each Capsule 1 Each PO DAILY Magnesium (Magnesium Oxide) 400 Mg Capsule 250 Mg PO DAILY Calcium (Calcium Carbonate) 500 Mg Tab.chew 1,200 Mg PO DAILY Vitamin D (Cholecalciferol (Vitamin D3)) 1,000 Unit Capsule 1,000 Unit PO DAILY Norvasc (Amlodipine Besylate) 5 Mg Tablet 1 Tab PO DAILY Prilosec Otc (Omeprazole Magnesium) 20 Mg Tablet.dr 1 Tab PO DAILYBFRSUP Potassium Chloride 10 Meq Tab.sr.24h 10 Meq PO DAILY Lasix (Furosemide) 20 Mg Tablet 1 Tab PO DAILY Synthroid (Levothyroxine Sodium) 75 Mcg Tablet 1 Tab PO DAILY Crestor (Rosuvastatin Calcium) 10 Mg Tablet 1 Tab PO HS Toprol Xl (Metoprolol Succinate) 50 Mg Tab.er.24h 1 Tab PO DAILY Micardis (Telmisartan) 80 Mg Tablet 1 Tab PO DAILY Aspir 81 (Aspirin) 81 Mg Tablet.dr 1 Tab PO HS Vitals/I & O Vital Sign - Last 24 Hours 08/14/18 08/14/18 08/14/18 08/14/18 15:00 19:09 19:10 20:32 Temp 98.0 97.9 98.0 97.9 Pulse 54 54 54 Resp 18 20 B/P (MAP) 91/51 (64) 99/54 (69) 99/54 Pulse Ox 96 98 O2 Delivery Room Air Room Air Room Air 08/14/18 08/15/18 08/15/18 08/15/18 23:47 03:45 03:49 04:33 Temp 98.1 98.0 98.1 98.0 Pulse 54 55 56 60 Resp 20 18 B/P (MAP) 109/55 (73) 203/87 (125) 203/87 140/63 (88) Pulse Ox 96 98 O2 Delivery Room Air Room Air 08/15/18 08/15/18 08/15/18 08/15/18 07:00 07:55 07:56 08:00 Temp 97.8 97.8 Pulse 60 71 71 Resp 16 B/P (MAP) 122/56 (78) 122/56 122/56 Pulse Ox 97 O2 Delivery Room Air Room Air 08/15/18 11:00 Temp 97.9 97.9 Pulse 60 Resp 16 B/P (MAP) 113/59 (77) Pulse Ox 97 O2 Delivery Room Air Intake and Output 08/14/18 08/14/18 08/15/18 15:00 23:00 07:00 Intake Total 1000 ml 250 ml 1050 ml Balance 1000 ml 250 ml 1050 ml KIRK MACDONALD MD Aug 15, 2018 13:30
[2018-08-15] MEDS: amLODIPine BESYLATE 10 MG TABLET PO SCH (20:13)
[2018-08-15] MEDS: ATORVASTATIN CALCIUM 40 MG TABLET. PO SCH (20:13)
[2018-08-16 01:06] LABS: CALCIUM PTH 11.4 mg/dL (8.7-10.3); CREATININE PTH 1.52 mg/dL (0.57-1.00); PHOSPHORUS PTH 3.2 mg/dL (2.5-4.5); PTH INTACT 90 pg/mL (15-65)
[2018-08-16 03:40] VITALS: BP 118/56
[2018-08-16] MEDS: LEVOTHYROXINE 75 MCG TABLET PO SCH (05:48)
[2018-08-16 07:00] VITALS: BP 121/56
--- NOTE | 2018-08-16 08:15 | PDOC ---
PROGRESS NOTES Chief Complaint Chief Complaint Hypertensive urgency Moderate dehydration continues to have low oral intake, I have encouraged more water intake history of CAD currently asymptomatic Leukocytosis - likely hemoconcentration given her electrolyte results Hypernatremia Hypercalcemia still present which looks to be primary hyperparathyroidism with PTH 85 despite elevated calcium, will get sestamibi scan Plan: Sestamibi scan hopefully discharge once bp has been better controlled without the ups and downs that the patient's is worried about. she may have an emotional component to the her hypertension as well. follow up in the am History of Present Illness History of Present Illness Patient is a 77-year-old female with past medical history of hypertension, osteoporosis (on prolia) who was in her usual state of health until approximately one week prior to her admission. The patient was prescribed prednisone in the outpatient setting and noted 190s to 200 systolic range. The patient denies dietary transgressions no changes to her recent medications recently. The patient denies excess salt intake nevertheless her readings have been consistently high. Patient also refers having headache as a consequence of her elevated blood pressure. She denies blurred vision but she does feel lightheaded and "foggy". She has not loss consciousness no chest pain no palpitations no chest fullness was described. Patient denies slurred speech no palpitations no abdominal pain no urinary symptoms no lower extremity edema no other symptoms were voiced by the patient. She was found to have a blood pressure greater than 220 systolic reason why we were asked to admit the patient for antihypertensive regimen. Calcium level notably 11.5 with Albumin of 3.7 Patient has not had recent changes to her medications patient's was concerned that she was going to suffer from a stroke I have provided reassurance and explained the plan of care in detail as well. Certainly the patient is at risk given her high readings for a CVA event nevertheless at the time my evaluation the patient is in no apparent distress and not exhibiting any neurological deficits. She does have a history of feeling "lightheaded as a consequence of her high blood pressure" Overnight BP controlled with home meds and PRN hydralazine.She is now c/o left sided neck pain and swelling, which is new. Calcium still elevated as well as PTH. Plan: IVF and lasix to lower her calcium level. Checked PTH, phos, vitamin D levels. Would hold off on prolia for now and check sestamibi scan. Vitals Vitals Vital Signs Date Time Temp Pulse Resp B/P (MAP) Pulse Ox O2 Delivery O2 Flow Rate FiO2 08/16/18 07:00 97.6 61 14 121/56 (77) 98 Room Air 97.6 Physical Exam General: Alert, Oriented X3, Cooperative, No acute distress Heart: Regular rate Lungs: Clear, Wheezing Abdomen: Normal bowel sounds Extremities: No clubbing Skin: No rashes, No breakdown Labs LABS Laboratory Tests Test 08/15/18 11:16 08/15/18 11:20 Urine Random Calcium 3.9 mg/dL (Not Estab.) Estimated GFR (Non- 33 (>59) Ionized Calcium 1.45 mmol/L (1.13-1.32) EGFR 38 (>59) PTH (Intact) Specimen Description Comment (.) Parathyroid Hormone (Intact) 90 pg/mL (15-65) Calcium (PTH Intact) 11.4 mg/dL (8.7-10.3) Creatinine (PTH Intact) 1.52 mg/dL (0.57-1.00) Phosphorus (PTH Intact) 3.2 mg/dL (2.5-4.5) Comment Review of Relevant I have reviewed the following items marjorie (where applicable) has been applied. Labs Laboratory Tests Test 08/14/18 16:10 08/15/18 04:45 08/15/18 11:16 08/15/18 11:20 Estimated GFR (Non- 46 (>59) 33 (>59) Ionized Calcium 1.39 mmol/L (1.13-1.32) 1.45 mmol/L (1.13-1.32) Phosphorus Level 3.8 mg/dL (2.6-4.7) EGFR 53 (>59) 38 (>59) PTH (Intact) Specimen Description Comment (.) Comment (.) Parathyroid Hormone (Intact) 84 pg/mL (15-65) 90 pg/mL (15-65) Calcium (PTH Intact) 10.8 mg/dL (8.7-10.3) 11.4 mg/dL (8.7-10.3) Creatinine (PTH Intact) 1.15 mg/dL (0.57-1.00) 1.52 mg/dL (0.57-1.00) Phosphorus (PTH Intact) 3.6 mg/dL (2.5-4.5) 3.2 mg/dL (2.5-4.5) Sodium Level 146 mmol/L (136-145) Potassium Level 4.1 mmol/L (3.5-5.1) Chloride Level 109 mmol/L (98-107) Carbon Dioxide Level 27 mmol/L (21-32) Anion Gap 10 (6-14) Blood Urea Nitrogen 44 mg/dL (7-20) Creatinine 1.4 mg/dL (0.6-1.0) Estimated GFR (Cockcroft-Gault) 36.5 Glucose Level 78 mg/dL (70-99) Calcium Level 10.4 mg/dL (8.5-10.1) Triglycerides Level 67 mg/dL (0-150) Cholesterol Level 128 mg/dL (0-200) LDL Cholesterol, Calculated 58 mg/dL (0-100) VLDL Cholesterol, Calculated 13 mg/dL (0-40) Non-HDL Cholesterol Calculated 71 mg/dL (0-129) HDL Cholesterol 57 mg/dL (40-60) Cholesterol/HDL Ratio 2.2 Urine Random Calcium 3.9 mg/dL (Not Estab.) Laboratory Tests Test 08/15/18 11:16 08/15/18 11:20 Urine Random Calcium 3.9 mg/dL (Not Estab.) Estimated GFR (Non- 33 (>59) Ionized Calcium 1.45 mmol/L (1.13-1.32) EGFR 38 (>59) PTH (Intact) Specimen Description Comment (.) Parathyroid Hormone (Intact) 90 pg/mL (15-65) Calcium (PTH Intact) 11.4 mg/dL (8.7-10.3) Creatinine (PTH Intact) 1.52 mg/dL (0.57-1.00) Phosphorus (PTH Intact) 3.2 mg/dL (2.5-4.5) Medications Current Medications Hydralazine HCl (Apresoline Inj) 10 mg 1X ONCE IVP Last administered on 08/13/18at 14:30; Start 08/13/18 at 13:45; Stop 08/13/18 at 13:46; Status DC Ondansetron HCl (Zofran) 4 mg PRN Q4HRS PRN IV NAUSEA/VOMITING; Start 08/13/18 at 14:15 Zolpidem Tartrate (Ambien) 5 mg PRN QHS PRN PO INSOMNIA; Start 08/13/18 at 14:15 Acetaminophen (Tylenol) 650 mg PRN Q4HRS PRN PO TEMP OVER 100.4F OR MILD PAIN; Start 08/13/18 at 14:15 Docusate Sodium (Colace) 100 mg PRN BID PRN PO CONSTIPATION; Start 08/13/18 at 14:15 Albuterol Sulfate (Ventolin Neb Soln) 2.5 mg PRN Q4HRS PRN NEB SHORTNESS OF BREATH; Start 08/13/18 at 14:15 Guaifenesin (Robitussin) 200 mg PRN Q4HRS PRN PO COUGH; Start 08/13/18 at 14:15 Lorazepam (Ativan) 0.5 mg PRN Q4HRS PRN PO ANXIETY / AGITATION; Start 08/13/18 at 14:15 Aspirin (Ecotrin) 81 mg DAILY PO Last administered on 08/15/18at 07:55; Start 08/14/18 at 09:00 Non-Formulary Medication (Alendronate Sodium (Fosamax)) 1 tab WEEKLY PO ; Start 08/20/18 at 09:00; Status UNV Metoprolol Succinate (Toprol Xl) 50 mg DAILY PO Last administered on 08/15/18at 07:55; Start 08/14/18 at 09:00 Nifedipine (Procardia Xl) 60 mg DAILY PO ; Start 08/14/18 at 09:00; Stop 08/14/18 at 09:00; Status DC Atorvastatin Calcium (Lipitor) 40 mg QHS PO Last administered on 08/15/18at 20:13; Start 08/13/18 at 21:00 Losartan Potassium (Cozaar) 100 mg DAILY PO Last administered on 08/15/18at 07:56; Start 08/14/18 at 09:00 Nicardipine HCl 50 mg/Sodium Chloride 250 ml CONT PRN IV SEE I/O RECORD; Start 08/13/18 at 15:15; Stop 08/14/18 at 15:14; Status UNV Nicardipine HCl 50 mg/Sodium Chloride 250 ml @ 25 mls/hr CONT PRN IV SEE I/O RECORD; Start 08/13/18 at 15:30 Pantoprazole Sodium (Protonix) 40 mg DAILYAC PO Last administered on 08/15/18 07:54; Start 08/13/18 at 15:45 Hydralazine HCl (Apresoline Inj) 10 mg PRN Q4HRS PRN IVP ELEVATED BP, SEE COMMENTS Last administered on 08/15/18at 03:49; Start 08/13/18 at 16:30 Amlodipine Besylate (Norvasc) 10 mg HS PO Last administered on 08/15/18at 20:13; Start 08/13/18 at 21:00 Furosemide (Lasix) 20 mg DAILY PO Last administered on 08/15/18at 07:55; Start 08/14/18 at 09:00; Stop 08/15/18 at 12:51; Status DC Levothyroxine Sodium (Synthroid) 75 mcg DAILY06 PO Last administered on 08/16/18 05:48; Start 08/14/18 at 06:00 Potassium Chloride (Klor-Con) 10 meq DAILY PO Last administered on 08/15/18at 07:55; Start 08/14/18 at 09:00 Non-Formulary Medication (Omeprazole Magnesium (Prilosec Otc)) 1 tab DAILYBFRSUP PO ; Start 08/13/18 at 17:00; Status UNV Sodium Chloride 1,000 ml @ 1,000 mls/hr 1X ONCE IV Last administered on 08/14/18 11:24; Start 08/14/18 at 11:15; Stop 08/14/18 at 12:14; Status DC Furosemide (Lasix) 40 mg 1X ONCE IVP Last administered on 08/14/18 11:24; Start 08/14/18 at 11:15; Stop 08/14/18 at 11:16; Status DC Sodium Chloride 1,000 ml @ 75 mls/hr [id number] IV Last administered on 08/14/18at 18:38; Start 08/14/18 at 18:15; Stop 08/15/18 at 07:34; Status DC Furosemide (Lasix) 20 mg 1X ONCE IVP Last administered on 08/15/18 06:15; Start 08/15/18 at 06:00; Stop 08/15/18 at 06:01; Status DC Hydrochlorothiazide (Hydrodiuril) 25 mg DAILY PO ; Start 08/16/18 at 09:00 Active Scripts Active Reported Colace (Docusate Sodium) 100 Mg Capsule 1 Cap PO HS Lutein-Zeaxanthin 25-5 Mg Sfgl (Lutein/Zeaxanthin) 1 Each Capsule 1 Each PO DAILY Magnesium (Magnesium Oxide) 400 Mg Capsule 250 Mg PO DAILY Calcium (Calcium Carbonate) 500 Mg Tab.chew 1,200 Mg PO DAILY Vitamin D (Cholecalciferol (Vitamin D3)) 1,000 Unit Capsule 1,000 Unit PO DAILY Norvasc (Amlodipine Besylate) 5 Mg Tablet 1 Tab PO DAILY Prilosec Otc (Omeprazole Magnesium) 20 Mg Tablet.dr 1 Tab PO DAILYBFRSUP Potassium Chloride 10 Meq Tab.sr.24h 10 Meq PO DAILY Lasix (Furosemide) 20 Mg Tablet 1 Tab PO DAILY Synthroid (Levothyroxine Sodium) 75 Mcg Tablet 1 Tab PO DAILY Crestor (Rosuvastatin Calcium) 10 Mg Tablet 1 Tab PO HS Toprol Xl (Metoprolol Succinate) 50 Mg Tab.er.24h 1 Tab PO DAILY Micardis (Telmisartan) 80 Mg Tablet 1 Tab PO DAILY Aspir 81 (Aspirin) 81 Mg Tablet.dr 1 Tab PO HS Vitals/I & O Vital Sign - Last 24 Hours 08/15/18 08/15/18 08/15/18 08/15/18 11:00 15:00 19:00 19:17 Temp 97.9 98.2 97.6 97.9 98.2 97.6 Pulse 60 60 65 Resp 16 16 20 B/P (MAP) 113/59 (77) 100/55 (70) 122/70 (87) Pulse Ox 97 97 97 O2 Delivery Room Air Room Air Room Air Room Air 08/15/18 08/15/18 08/16/18 08/16/18 20:13 23:00 03:40 07:00 Temp 97.9 97.7 97.6 97.9 97.7 97.6 Pulse 65 62 56 61 Resp 20 20 14 B/P (MAP) 122/70 85/57 (66) 118/56 (76) 121/56 (77) Pulse Ox 96 98 O2 Delivery Room Air Room Air Room Air Intake and Output 08/15/18 08/15/18 08/16/18 14:59 22:59 06:59 Intake Total 200 ml Balance 200 ml LUCHO TOLLIVER MD Aug 16, 2018 08:15
[2018-08-16] MEDS ORDERED: hydroCHLOROthiazide 25 MG TABLET PO SCH (09:00)
[2018-08-16] MEDS: LOSARTAN POTASSIUM 50 MG TABLET. PO SCH (09:24)
[2018-08-16] MEDS: METOPROLOL SUCC 24HR ER 50 MG TAB.ER.24H. PO SCH (09:24)
[2018-08-16] MEDS: PANTOPRAZOLE 40 MG TABLET.DR. PO SCH (09:25)
[2018-08-16] MEDS: ASPIRIN ENTERIC COATED 81 MG TABLET.DR. PO SCH (09:25)
[2018-08-16] MEDS: POTASSIUM CHLORIDE 10 MEQ TABLET.ER. PO SCH (09:26)
[2018-08-16 11:00] VITALS: BP 109/57
[2018-08-16 13:35] LABS: CALCIUM 10.9 mg/dL (8.5-10.1); CREATININE 1.5 mg/dL (0.6-1.0); GFR 33.7; POTASSIUM 3.9 mmol/L (3.5-5.1)
--- NOTE | 2018-08-16 14:18 | PDOC ---
CARDIO Progress Notes Date and Time Date of Service 08/16/18 Subjective Subjective: No Chest Pain, No shortness of breath Vitals Vitals Vital Signs Date Time Temp Pulse Resp B/P (MAP) Pulse Ox O2 Delivery O2 Flow Rate FiO2 08/16/18 11:00 98.2 62 14 109/57 (74) 98 Room Air 98.2 Weight Weight [ ] Input and Output Intake and Output Intake and Output 08/16/18 07:00 Intake Total 200 ml Balance 200 ml Intake Oral 200 ml # Voids 3 Laboratory Labs Laboratory Tests Test 08/16/18 13:00 Sodium Level 141 mmol/L (136-145) Potassium Level 3.9 mmol/L (3.5-5.1) Chloride Level 104 mmol/L (98-107) Carbon Dioxide Level 29 mmol/L (21-32) Anion Gap 8 (6-14) Blood Urea Nitrogen 41 mg/dL (7-20) Creatinine 1.5 mg/dL (0.6-1.0) Estimated GFR (Cockcroft-Gault) 33.7 Glucose Level 93 mg/dL (70-99) Calcium Level 10.9 mg/dL (8.5-10.1) Ionized Calcium 1.42 mmol/L (1.13-1.32) Physical Exam HEENT: Neck Supple W Full Motion Chest: Symmetric LUNGS: Clear to Auscultation Heart: S1S2, RRR Abdomen: Soft N/T Extremities: No Edema Neurology: alert, oriented, follow commands Assessment Assessment 1. Accelerated hypertension; BP now well-controlled 2. CAD s/p PCI/stents. Stable. CP free. 3. PVD s/p SWITCH[employer]ARD [employer]/stent 4. Hyperlipidemia; statin 5. Hypercalcemia; as per PCP Recommendations Secondary prevention including ASA, statin, BB Continue current antiHTN therapy Hydralazine IV PRN MICHELLE TAN APRN Aug 16, 2018 14:18
--- NOTE | 2018-08-16 14:33 | NUR ---
SS following for discharge planning. SS reviewed pt chart. Pt is from home with spouse. No discharge needs noted at this time. SS will continue to follow for discharge planning.
[2018-08-16 15:00] VITALS: BP 142/66
[2018-08-16 19:19] VITALS: BP 124/59
[2018-08-16] MEDS: ATORVASTATIN CALCIUM 40 MG TABLET. PO SCH (20:18)
[2018-08-16] MEDS: amLODIPine BESYLATE 10 MG TABLET PO SCH (20:18)
[2018-08-16 22:33] VITALS: BP 126/58
[2018-08-17 03:13] VITALS: BP 123/58
[2018-08-17] MEDS: LEVOTHYROXINE 75 MCG TABLET PO SCH (06:03)
[2018-08-17 07:00] VITALS: BP 112/56
[2018-08-17] MEDS: PANTOPRAZOLE 40 MG TABLET.DR. PO SCH (07:22)
--- NOTE | 2018-08-17 08:27 | RAD ---
EXAM: PARATHYROID SCINTIGRAPHY. HISTORY: Hyperparathyroidism. COMPARISON: None. FINDINGS: 25 mCi technetium 99m sestamibi was administered intravenously. Scintigraphic images of the neck and upper chest were obtained immediately and after a delay. Early activity in the region of the right thyroid lobe persists. This is asymmetrically greater than on the left. No sites of persistent greater uptake on the delayed images suggestive of a parathyroid adenoma are identified. IMPRESSION: 1. No parathyroid adenoma is identified. 2. Asymmetric thyroid uptake can be correlated with thyroid ultrasound to assess for nodules or other etiologies. Electronically signed by: Mundo Alexander MD (08/17/2018 8:24 AM) [facility]
[2018-08-17] MEDS: ASPIRIN ENTERIC COATED 81 MG TABLET.DR. PO SCH (08:55)
[2018-08-17 08:56] VITALS: BP 112/56
[2018-08-17] MEDS: METOPROLOL SUCC 24HR ER 50 MG TAB.ER.24H. PO SCH (08:56)
[2018-08-17] MEDS: POTASSIUM CHLORIDE 10 MEQ TABLET.ER. PO SCH (08:56)
[2018-08-17] MEDS: LOSARTAN POTASSIUM 50 MG TABLET. PO SCH (08:56)
--- NOTE | 2018-08-17 10:00 | PDOC3 ---
Discharge Summary Visit Information Date of Admission: August 13, 2018 Date of Discharge: Aug 17, 2018 Admitting Diagnosis: Hypertensive emergency Final Diagnosis Hypercalcemia, hypertensive emergency Brief Hospital Course Allergies Allergies Coded Allergies Type Severity Reaction Last Updated Verified Sulfa (Sulfonamide Antibiotics) Allergy Intermediate RASH 12/21/14 Yes clopidogrel Allergy Intermediate RASH 12/21/14 Yes nitrofurantoin Allergy Intermediate 08/14/18 Yes Vital Signs Vital Signs Date Time Temp Pulse Resp B/P (MAP) Pulse Ox O2 Delivery O2 Flow Rate FiO2 08/17/18 08:56 69 112/56 08/17/18 08:00 Room Air 08/17/18 07:00 97.8 16 98 97.8 Lab Results Laboratory Tests Test 08/15/18 11:16 08/15/18 11:20 08/16/18 13:00 Urine Random Calcium 3.9 mg/dL (Not Estab.) Estimated GFR (Non- 33 (>59) Ionized Calcium 1.45 mmol/L (1.13-1.32) 1.42 mmol/L (1.13-1.32) EGFR 38 (>59) PTH (Intact) Specimen Description Comment (.) Parathyroid Hormone (Intact) 90 pg/mL (15-65) Calcium (PTH Intact) 11.4 mg/dL (8.7-10.3) Creatinine (PTH Intact) 1.52 mg/dL (0.57-1.00) Phosphorus (PTH Intact) 3.2 mg/dL (2.5-4.5) Sodium Level 141 mmol/L (136-145) Potassium Level 3.9 mmol/L (3.5-5.1) Chloride Level 104 mmol/L (98-107) Carbon Dioxide Level 29 mmol/L (21-32) Anion Gap 8 (6-14) Blood Urea Nitrogen 41 mg/dL (7-20) Creatinine 1.5 mg/dL (0.6-1.0) Estimated GFR (Cockcroft-Gault) 33.7 Glucose Level 93 mg/dL (70-99) Calcium Level 10.9 mg/dL (8.5-10.1) Laboratory Tests Test 08/16/18 13:00 Sodium Level 141 mmol/L (136-145) Potassium Level 3.9 mmol/L (3.5-5.1) Chloride Level 104 mmol/L (98-107) Carbon Dioxide Level 29 mmol/L (21-32) Anion Gap 8 (6-14) Blood Urea Nitrogen 41 mg/dL (7-20) Creatinine 1.5 mg/dL (0.6-1.0) Estimated GFR (Cockcroft-Gault) 33.7 Glucose Level 93 mg/dL (70-99) Calcium Level 10.9 mg/dL (8.5-10.1) Ionized Calcium 1.42 mmol/L (1.13-1.32) Brief Hospital Course Patient is a 77-year-old female with past medical history of hypertension, osteoporosis (on prolia) who was in her usual state of health until approximately one week prior to her admission. The patient was prescribed prednisone in the outpatient setting and noted 190s to 200 systolic range. The patient denies dietary transgressions no changes to her recent medications recently. The patient denies excess salt intake nevertheless her readings have been consistently high. Patient also refers having headache as a consequence of her elevated blood pressure. She denies blurred vision but she does feel lightheaded and "foggy". She has not loss consciousness no chest pain no palpitations no chest fullness was described. Patient denies slurred speech no palpitations no abdominal pain no urinary symptoms no lower extremity edema no other symptoms were voiced by the patient. She was found to have a blood pressure greater than 220 systolic reason why we were asked to admit the patient for antihypertensive regimen. Calcium level notably 11.5 with Albumin of 3.7 She receive IVF and lasix comcomitantly for her symptomatic hypercalcemia and tolerated an an increase in norvasc well. Patient has not had recent changes to her medications patient's was concerned that she was going to suffer from a stroke I have provided reassurance and explained the plan of care in detail as well. Certainly the patient is at risk given her high readings for a CVA event nevertheless at the time my evaluation the patient is in no apparent distress and not exhibiting any neurological deficits. She does have a history of feeling "lightheaded as a consequence of her high blood pressure" BP controlled with home meds and PRN hydralazine.She is c/o left sided neck pain and swelling, which was new. Calcium was still elevated as well as PTH so she underwent a sestamibi scan which was negative for parathyroid adenoma. (Vitamin D was 55, normal) Hypertensive urgency Moderate dehydration continues to have low oral intake, I have encouraged more water intake history of CAD currently asymptomatic Leukocytosis - likely hemoconcentration given her electrolyte results, resolved Hypernatremia Hypercalcemia still present which looks to be primary hyperparathyroidism with PTH 85 despite elevated calcium, negative sestamibi scan. Will need f/u labs outpatient, which is her preference for UPEP, SPEP, 24 urine, and serum light chains Physical Exam General: Alert, Oriented X3, Cooperative, No acute distress Heart: Regular rate Lungs: Clear, Wheezing Abdomen: Normal bowel sounds Extremities: No clubbing Skin: No rashes, No breakdown Discharge Information Condition at Discharge: Improved Follow Up: Weeks (2) Disposition/Orders: D/C to Home Scheduled Amlodipine Besylate (Norvasc) 5 Mg Tablet, 1 TAB PO DAILY for HTN, #30 Ref 5 (Reported) Entered as Reported by: ANAMARIA BARRAZA on 08/13/181640 Last Action: New Order on 08/13/181640 by ANAMARIA BARRAZA Aspirin (Aspir 81) 81 Mg Tablet.dr, 1 TAB PO HS for heart health, #30 Ref 5 (Reported) Entered as Reported by: HUMAIRA SHEPHERD on 12/21/14906 Last Action: Edited on 08/13/181640 by ANAMARIA BARRAZA Calcium Carbonate (Calcium) 500 Mg Tab.chew, 1,200 MG PO DAILY for supplement, (Reported) Entered as Reported by: ANAMARIA BARRAZA on 08/13/181640 Last Action: New Order on 08/13/181640 by ANAMARIA BARRAZA Cholecalciferol (Vitamin D3) (Vitamin D) 1,000 Unit Capsule, 1,000 UNIT PO DAILY for supplement, (Reported) Entered as Reported by: ANAMARIA BARRAZA on 08/13/181640 Last Action: New Order on 08/13/181640 by ANAMARIA BARRAZA Docusate Sodium (Colace) 100 Mg Capsule, 1 CAP PO HS for constipation, #30 (Reported) Entered as Reported by: ANAMARIA BARRAZA on 08/13/181640 Last Action: New Order on 08/13/181640 by ANAMARIA BARRAZA Furosemide (Lasix) 20 Mg Tablet, 1 TAB PO DAILY for CHF, #90 Ref 1 (Reported) Entered as Reported by: ANAAMRIA BARRAZA on 08/13/181640 Last Action: Continued on 08/13/181644 by ANAMARIA BARRAZA Levothyroxine Sodium (Synthroid) 75 Mcg Tablet, 1 TAB PO DAILY for hyperthyroid, #30 Ref 5 (Reported) Entered as Reported by: ANAMARIA BARRAZA on 08/13/181640 Last Action: Continued on 08/13/181644 by ANAMARIA BARRAZA Lutein/Zeaxanthin (Lutein-Zeaxanthin 25-5 Mg Sfgl) 1 Each Capsule, 1 EACH PO DAILY for supplement, (Reported) Entered as Reported by: ANAMARIA BARRAZA on 08/13/181640 Last Action: New Order on 08/13/181640 by ANAMARIA BARRAZA Magnesium Oxide (Magnesium) 400 Mg Capsule, 250 MG PO DAILY for supplement, (Reported) Entered as Reported by: ANAMARIA BARRAZA on 08/13/181640 Last Action: New Order on 08/13/181640 by ANAMARIA BARRAZA Metoprolol Succinate (Toprol Xl) 50 Mg Tab.er.24h, 1 TAB PO DAILY, #30 Ref 5 (Reported) Entered as Reported by: HUMAIRA SHEPHERD on 12/21/14906 Last Action: Reviewed on 08/13/181640 by ANAMARIA BARRAZA Omeprazole Magnesium (Prilosec Otc) 20 Mg Tablet.dr, 1 TAB PO DAILYBFRSUP for GERD, #30 Ref 3 (Reported) Entered as Reported by: ANAMARIA BARRAZA on 08/13/181640 Last Action: Converted on 08/13/181644 by ANAMARIA BARRAZA Potassium Chloride (Potassium Chloride) 10 Meq Tab.sr.24h, 10 MEQ PO DAILY for s upplement, (Reported) Entered as Reported by: ANAMARIA BARRAZA on 08/13/181640 Last Action: Continued on 08/13/181644 by ANAMARIA BARRAZA Rosuvastatin Calcium (Crestor) 10 Mg Tablet, 1 TAB PO HS for HLD, #30 Ref 5 (Reported) Entered as Reported by: HUMAIRA SHEPHERD on 12/21/14906 Last Action: Edited on 08/13/181640 by ANAMARIA BARRAZA Telmisartan (Micardis) 80 Mg Tablet, 1 TAB PO DAILY, #30 Ref 5 (Reported) Entered as Reported by: HUMAIRA SHEPHERD on 12/21/14906 Last Action: Reviewed on 08/13/181640 by ANAMARIA BARRAZA Discontinued Medications Alendronate Sodium (Fosamax) 70 Mg Tablet, 1 TAB PO WEEKLY, #4 Ref 11 (Reported) Entered as Reported by: HUMAIRA SHEPHERD on 12/21/14906 Last Action: Discontinued on 08/13/181640 by ANAMARIA BARRAZA Hydrochlorothiazide (Hydrochlorothiazide Tablet) 50 Mg Tablet, 1 TAB PO DAILY, #30 Ref 5 (Reported) Entered as Reported by: HUMAIRA SHEPHERD on 12/21/14906 Last Action: Discontinued on 08/13/181640 by ANAMARIA BARRAZA Nifedipine (Nifedical Xl) 60 Mg Tab.er.24, 60 MG PO DAILY, (Reported) Entered as Reported by: HUMAIRA SHEPHERD on 12/21/14906 Last Action: Discontinued on 08/13/181640 by LUCHO TEIXEIRA MD Aug 17, 2018 09:59
[2018-08-17] MEDS ORDERED: AMLO10TA8 PO (10:02)
--- NOTE | 2018-08-17 11:05 | NUR ---
Discharge Note: CELINA ROSADO Discharge instructions and discharge home medications reviewed with Patient and a copy given. All questions have been answered and understanding verbalized. The following instructions and handouts were given: HTN Discontinued lines and drains: Peripheral IV intact. Patient discharged to Home or Self Care with Spouse via Ambulated All personal belongings returned patient left in POV.
[2018-08-20] MEDS ORDERED: NON FORMULARY ITEM (Alendronate Sodium (Fosamax) 1 TAB) PO SCH (09:00)
== END 2018-08-17 10:45 | disposition home or self-care (01) | DRG 304 ==
LOC: ER 12:10 → 2 SOUTH 12:58
PROVIDERS: ADMIT Internal Medicine; ATTEND Internal Medicine
DX: I16.0 Hypertensive urgency (principal); N17.0 Acute kidney failure with tubular necrosis; E87.0 Hyperosmolality and hypernatremia; I16.1 Hypertensive emergency; E86.0 Dehydration; I10 Essential (primary) hypertension; D72.829 Elevated white blood cell count, unspecified; E21.0 Primary hyperparathyroidism; E78.5 Hyperlipidemia, unspecified; I25.10 Atherosclerotic heart disease of native coronary artery without angina pectoris; I73.9 Peripheral vascular disease, unspecified; M81.0 Age-related osteoporosis without current pathological fracture; Z82.49 Family history of ischemic heart disease and other diseases of the circulatory system; Z98.62 Peripheral vascular angioplasty status; Z95.5 Presence of coronary angioplasty implant and graft; Z79.899 Other long term (current) drug therapy; M19.90 Unspecified osteoarthritis, unspecified site
CPT/HCPCS: 36415; 70450; 71045; 71046; 78070; 80048; 80053; 80061; 81001; 82306; 82310; 82550; 83690; 83880; 83970; 84100; 84484; 85025; 85610; 93005; 94760; 96374; A9500; J0360; J1940; J7030; 99285-25

== ENCOUNTER → 2021-01-21 | Outpatient (CLI) | payer MEDICARE, OTHER ==
[2019-02-19 18:05] VITALS: BP 162/61
[~2021-01-21] MED LIST changes: +AMLO-187 PO; +AMLO5TAB4 PO; +CALC1CAP7 PO; +CALC500T54 PO; +CARV25TA PO; +CHOL100013 PO; +DOCU-109 PO; +FURO-69 PO; +HYDR-3164 PO; -HYDR50TA6 PO; +HYDR50TA9 PO; +LEVO75TA90 PO; +LUTE1CAP PO; +MAGN400C PO; +MULT-245 PO; +OMEP20TA63 PO; +PANT40TA77 PO; +POTA10TA12 PO; +PRAS10TA9 PO
--- NOTE | 2021-01-21 11:47 | KCIC ---
EXAMINATION: Magnetic resonance imaging (MRI) of the lumbar spine without contrast 01/21/2021 8:50 AM HISTORY: Acute midline low back pain with right-sided sciatica TECHNIQUE: Multiplanar multi-weighted MRI of the lumbar spine was performed without intravenous contr ast using the standard lumbar spine protocol. Contrast information: None administered. COMPARISON: None available. FINDINGS: There is 1 mm retrolisthesis of L1 on L2. There is 3 mm retrolisthesis of L2 on L3. 2 mm retrolisthes is of L3 on L4. 2 mm anterolisthesis of L4 on L5. 2 mm anterolisthesis of L5 on S1. Vertebral bodies demonstrate normal signal intensity on all sequences. There are no compression fractures. The conus medullaris terminates at the level of L1-L2. The distal spinal cord signal intensity is normal. The re is disc desiccation at all levels of the lumbar spine. Disc heights are maintained. There is asymm etric atrophy of the left kidney. The aorta is normal. L1-L2: The disc is normal in configuration. There is no facet arthropathy. There is no neuroforaminal stenosis. There is no spinal canal stenosis. L2-L3: The disc is normal in configuration. There is mild facet arthropathy. There is mild left neuro foraminal stenosis. There is no spinal canal stenosis. L3-L4: Mild disc bulge. Mild facet arthropathy. Mild bilateral neuroforaminal stenosis. No significan t spinal canal stenosis. L4-L5: There is a mild circumferential disc bulge. Mild facet arthropathy. No significant neuroforami nal stenosis. Mild spinal canal stenosis. L5-S1: There is a circumferential disc bulge with right central disc extrusion extending caudally to the infra pedicle level of S1. Moderate facet arthropathy. There is right lateral recess stenosis wit h impingement of the traversing right S1 nerve. Moderate right and mild left neuroforaminal stenosis. IMPRESSION: Mild to moderate degenerative changes of the lumbar spine are present as described in detail above. F indings are most significant at L5-S1. There is asymmetric atrophy of the left kidney. Electronically signed by: Kelly Kramer MD (01/21/2021 11:45 AM) [facility]
== END ==
LOC: KCIC MRI 08:30
PROVIDERS: ATTEND Nurse Practitioner
DX: M47.816 Spondylosis without myelopathy or radiculopathy, lumbar region (principal); N26.1 Atrophy of kidney (terminal); M51.27 Other intervertebral disc displacement, lumbosacral region; M48.07 Spinal stenosis, lumbosacral region; M48.8X7 Other specified spondylopathies, lumbosacral region; M43.16 Spondylolisthesis, lumbar region; M54.41 Lumbago with sciatica, right side
CPT/HCPCS: 72114; 72148

== ENCOUNTER → 2021-01-21 | Outpatient (CLI) | payer MEDICARE, OTHER ==
[2019-02-19 18:05] VITALS: BP 162/61
--- NOTE | 2021-01-21 11:04 | KCIC ---
XR LUMBAR SPINE 4+V 01/21/2021 Reason: ACUTE MIDLINE LOW BACK PAIN WITH RIGHT-SIDED SCIATICA / Spl. Instructions: / History: Comparison: None Technique: AP, oblique, lateral, lumbosacral views of the lumbar spine Findings: There are 5 nonrib-bearing vertebral bodies in the lumbar spine. There is mild dextroconvex scoliosis . Vertebral body height and AP alignment is normal. There is diffuse osseous demineralization. There is mild to moderate facet joint hypertrophy and degenerative change greatest at the lower levels. Mil d disc space narrowing. There is dense calcification of the aorta and its branches. Impression: [id number] degenerative disc and spine disease. Electronically signed by: Jose Shelley (01/21/2021 11:02 AM) [id number]
== END ==
LOC: KCIC 09:37
PROVIDERS: ATTEND Nurse Practitioner
DX: M51.36 Other intervertebral disc degeneration, lumbar region (principal); I70.0 Atherosclerosis of aorta; M48.061 Spinal stenosis, lumbar region without neurogenic claudication; M81.8 Other osteoporosis without current pathological fracture; M41.86 Other forms of scoliosis, lumbar region; M54.41 Lumbago with sciatica, right side
CPT/HCPCS: 72114

== ENCOUNTER → 2021-02-05 | Outpatient (CLI) | payer MEDICARE, OTHER ==
[2019-02-19 18:05] VITALS: BP 162/61
--- NOTE | 2021-02-05 17:08 | PDOC1 ---
INITIAL PAIN CONSULT DATE OF SERVICE: DOS: DATE: 02/05/21 TIME: 17:03 CHIEF COMPLAINT: Chief Complaint: Low back and right lower extremity pain HISTORY OF PRESENT ILLNESS: 80-year-old female presents history of pain low back right lower extremity for approximately 2 months not the result of any specific injury or accident that she is aware of it getting worse over time with low back pain rating the right lower extremity posterior gluteus posterior thigh posterior calf and into the ankle on the right side worse with walking standing and sitting for prolonged periods patient reports better with laying down also exacerbated with standing walking but does awaken her from sleep at least twice a night patient reports is not effective bowel bladder control but generally does not affect her ability to walk she feels better when she is moving around patient reports her pain is actually slightly less than it was about a week ago but is in the low back rating the posterior gluteus posterior thigh posterior calf and ankle constant sharp stabbing throbbing radiating down the leg patient has been taking Tylenol 3 and 25/5 100 mg which does decrease the pain as does prednisone 10 mg patient also had a Medrol Dosepak initially which helped but had some side effects which made her feel tired patient reports she is not had any formal physical therapy or any other chiropractic treatments or any other modalities at this time besid es the medications. Patient rates her disability rating 0-10 10 me the worst is a 5 with in-house possibility 7 with social activity 3 with occupation and 5 with life support activities specially sleeping. Patient have an MRI scan lumbar spine showing mild to moderate degenerative changes lumbar spine with findings most significant L5-S1 with right lateral recess stenosis and imp ingement of the traversing right S1 nerve root. PAST MEDICAL HISTORY: PMH: Hypertension, arthritis, coronary disease, basal cell skin cancer PREVIOUS SURGERIES: Past Surgical Hx: Cataract extraction on the right, parathyroidectomy, bilateral revascularization of the lower extremities, coronary stents placed CURRENT MEDICATIONS: Current Meds: Active Scripts Medications Dose Route/Sig Max Daily Dose Days Date Category Calcium 600 + Vit D 400 Softgl (Calcium Carbonate/Vitamin D3) 1 Each Capsule 1 Cap PO BID 30 02/05/21 Reported Multi Vitamin Daily (Multivitamin) 1 Each Tablet 1 Tab PO DAILY 30 02/05/21 Reported Effient (Prasugrel Hcl) 10 Mg Tablet 1 Tab PO DAILY 02/05/21 Reported Micardis (Telmisartan) 80 Mg Tablet 1 Tab PO DAILY 02/05/21 Reported Protonix (Pantoprazole Sodium) 40 Mg Tablet.dr 40 Mg PO DAILYAC 02/05/21 Reported Coreg (Carvedilol) 25 Mg Tablet 25 Mg PO BIDWMEALS 02/05/21 Reported Amlodipine Besylate 10 Mg Tablet 10 Mg PO HS 30 08/17/18 Rx Lutein-Zeaxanthin 25-5 Mg Sfgl (Lutein/Zeaxanthin) 1 Each Capsule 1 Each PO DAILY 08/13/18 Reported Synthroid (Levothyroxine Sodium) 75 Mcg Tablet 1 Tab PO DAILY 08/13/18 Reported Crestor (Rosuvastatin Calcium) 10 Mg Tablet 1 Tab PO HS 12/21/14 Reported Aspir 81 (Aspirin) 81 Mg Tablet.dr 1 Tab PO HS 12/21/14 Reported ALLERGIES; Allergies: Coded Allergies: Sulfa (Sulfonamide Antibiotics) (Verified Allergy, Intermediate, RASH, 12/21/14) clopidogrel (Verified Allergy, Intermediate, RASH, 12/21/14) nitrofurantoin (Verified Allergy, Intermediate, 08/14/18) FAMILY HISTORY: Family Hx: Hypertension SOCIAL HISTORY: Social Hx: Patient without alcohol does not smoke says any illegal illicit recreational drugs lives with her spouse lives locally in [place], [place] and is currently retired. REVIEW OF SYSTEMS: ROS: Positive for those items mentioned in history of present illness, all systems are reviewed, otherwise negative ,and are complete full and well-documented on patient's chart. PHYSICAL EXAM: VS: Blood pressure is 165/76 pulse 63 respirations 18 temperature 98.0 F height is 5 foot 1 his weight is 117 pounds PE: PHYSICAL EXAMINATION: GENERAL: The patient is awake, alert, oriented, appropriate, very pleasant in demeanor, patient Kumpe by her . HEENT: Shows normocephalic, atraumatic. Extraocular movements are intact and symmetrical. Oral cavity: Mucous membranes moist and pink. NECK: Shows anterior throat supple without palpable lymphadenopathy noted. Swallow reflex symmetrical. CHEST: Shows normal on inspection. Breath sounds are clear bilaterally, no rales or rhonchi. HEART: Shows S1, S2 clear. No murmurs auscultated. ABDOMEN: Soft, nontender, nondistended. No palpable organomegaly is noted. BACK: Shows spine grossly in the midline. Normal-appearing cervical lordotic curvature. There is slightly increased thoracic kyphosis, some flattening of the lumbar lordotic curvature. Lumbar paraspinous muscles show symmetrical on inspection, on palpation shows some moderate tenderness diffusely throughout the upper, middle and lower distribution of the paraspinous muscles bilaterally and also into the lower thoracic paraspinous musculature, firm and tender, but without specific trigger points, without radiation of pain. The patient has good rotational motion of the lumbar spine, both laterally as well as extension and flexion without significant difficulty. No tenderness over the spinous processes, sacrum or sacroiliac regions. EXTREMITIES: Lower extremities show deep tendon reflexes 2+ in the patellar and tendo calcaneus tendons. Motor exam is 5 on a scale of 5 with right dorsiflexion, extension, quadriceps and hamstring flexion and 5/5 on the left. Peripheral pulses are 1+ posterior tibial. No peripheral edema is noted bilaterally. Lower extremities are warm and dry to touch, equal in color and appearance. Straight leg raise noted to be negative bilaterally. Gaenslen's and Rick's maneuvers are negative bilateral as well. The patient is able to stand, stand on her toes without significant difficulty loss of balance walks with a slight favoring gait does appear to favor the right lower extremity slightly but not needing any assistive devices to ambulate. SKIN: Shows warm and dry, good turgor. No edema. No sores, rashes or bruising throughout. IMPRESSION: Impression: 80-year-old female with approximate 2-month history low back right lower extremity pain and radicular fashion. MRI scan lumbar spine as noted Arthritis Hypertension Peripheral vascular disease Coronary artery disease Anticoagulation therapy Plan: Options were discussed the patient and patient spouse who accompanied her to visit today including serve medical managements physical therapies interventional techniques. Patient like to pursue a most conservative course at this time, and we will order physical therapy with lumbar traction involved as well as stretching strength exercises. Patient will return to clinic after physical therapy is completed for reevaluation as necessary. NAVEED RG MD Feb 05, 2021 17:08
== END | disposition home or self-care (01) ==
LOC: PNCL 09:14
PROVIDERS: ATTEND Anesthesiology
DX: M54.50 Low back pain, unspecified (principal); M79.604 Pain in right leg; I10 Essential (primary) hypertension; M19.90 Unspecified osteoarthritis, unspecified site; I25.10 Atherosclerotic heart disease of native coronary artery without angina pectoris; E78.00 Pure hypercholesterolemia, unspecified; I73.9 Peripheral vascular disease, unspecified; E03.9 Hypothyroidism, unspecified; Z79.899 Other long term (current) drug therapy; Z79.82 Long term (current) use of aspirin; Z79.01 Long term (current) use of anticoagulants; Z88.2 Allergy status to sulfonamides; Z88.8 Allergy status to other drugs, medicaments and biological substances; Z82.49 Family history of ischemic heart disease and other diseases of the circulatory system
CPT/HCPCS: 99214; G0463